=== PATIENT | female | born 1965 | race Caucasian/White ===

== ENCOUNTER 2019-09-19 16:25 | Emergency (ER) | payer SELFPAY ==
[~2019-09-19] VITALS: Ht 154 cm; Wt 100.0 kg
[2019-09-19 16:40] VITALS: BP 165/93
[2019-09-19 16:45] LABS: BACTERIA,URINE FEW /HPF; BILIRUBIN,URINE NEGATIVE (NEGATIVE); CLARITY,URINE CLEAR; COLOR,URINE YELLOW; GLUCOSE, URINE (UA) 3+ (NEGATIVE); KETONES,URINE 1+ (NEGATIVE); LEUKOCYTE ESTERASE ,URINE NEGATIVE (NEGATIVE); NITRITE,URINE NEGATIVE (NEGATIVE); PROTEIN,URINE NEGATIVE (NEGATIVE); RBC,URINE TNTC /HPF
[2019-09-19] MEDS ORDERED: ONDANSETRON 4 MG (ZOFRAN) ORAL DISSOLVE TAB PO STA (16:52)
[2019-09-19] MEDS ORDERED: morphine INJ 10 MG/ML 1ML (SYR OR VIAL) IM STA (16:52)
[2019-09-19] MEDS ORDERED: HYDR-83 PO (16:57)
[2019-09-19] MEDS ORDERED: TMSL.4C PO (16:57)
--- NOTE | 2019-09-19 16:59 | ED GU-Female ---
General Chief Complaint: - Urinary Stated Complaint: LOWER RIGHT GROIN/ABD/BACK PAIN Nursing Triage Note: RIGHT SIDE FLANK PAIN SINCE THIS AM. STARTED OUT CRAMPS. REPORTS A HX OF KIDNEY STONES. Nursing Sepsis Screen: No Definite Risk Source: patient Exam Limitations: no limitations History of Present Illness Date Seen by Provider: Sep 19, 2019 Time Seen by Provider: 16:45 Initial Comments Patient presents with complaint of 3 days of right flank pain and history of frequent kidney stones. Patient visiting her granddaughter from out of town and currently does not have a PCP where she recently moved in [place] from [place]. Also does not have a urologist. Does admit to being seen at [facility] 3 weeks ago and had a CT scan which was negative and presumed to have stones at that time due to recurrent flank pain and hematuria. Patient states she "has the type of stones that sometimes are not seen on CT scan". Currently pain in her right lower quadrant which was radiating from her right flank. Pain began in her right flank 3 days ago. Patient states this is typical of her kidney stone pain. Denies vomiting, constipation or diarrhea. Denies fever or chills. Denies chest pain shortness of air. Denies any recent illness. Appetite is normal and without any weight loss. Allergies and Home Medications Allergies Coded Allergies: cyclobenzaprine (Verified Allergy, Mild, 09/19/19) diphenhydramine (Verified Allergy, Mild, Hives, 09/19/19) ketorolac (Verified Allergy, Mild, Hives, 09/19/19) sumatriptan (Verified Allergy, Mild, Nausea, 09/19/19) Iodinated Contrast Media (Verified Allergy, Unknown, 09/19/19) Home Medications Hydrocodone/Acetaminophen 1 Each Tablet, 1 EACH PO Q4H Prescribed by: LEEANNA DENISSTKVNG on 09/19/191656 Tamsulosin HCl 0.4 Mg Cap, 0.4 MG PO DAILY Prescribed by: LEEANNA COELHO on 09/19/191656 Patient Home Medication List Home Medication List Reviewed: Yes Review of Systems Review of Systems Constitutional: see HPI; No fever, No malaise, No weakness Cardiovascular: No edema, No palpitations Gastrointestinal: see HPI; No constipation, No diarrhea, No loss of appetite; nausea; No vomiting Genitourinary: see HPI; denies burning, denies discharge, denies dysuria, denies frequency; flank pain, hematuria; denies incontinence; pain; denies urgency Musculoskeletal: see HPI; No back pain, No joint pain, No neck pain Past Yugjoei-Ihimeo-Ixvmzq Hx Past Med/Social Hx: Reviewed Nursing Past Med/Soc Hx Patient Social History Alcohol Use: Denies Use Recreational Drug Use: No Smoking Status: Current Everyday Smoker Type Used: Cigarettes 2nd Hand Smoke Exposure: Yes Recent Foreign Travel: No Contact w/Someone Who Travel: No Recent Infectious Disease Expo: No Recent Hopitalizations: No Physical Abuse: No Sexual Abuse: No Mistreated: No Fear: No Seasonal Allergies Seasonal Allergies: No Past Medical History Surgeries: Yes (HERNIA REPAIR, CARPAL TUNNEL BILAT, KIDNEY STONE RETRIVELS X 3) Gallbladder Respiratory: No Cardiac: No Neurological: Yes Neuropathy [employer] TECHNICIAN History: Hysterectomy Genitourinary: Yes Kidney Stones Gastrointestinal: No Musculoskeletal: Yes Arthritis Endocrine: Yes Diabetes, Non-Insulin dep HEENT: No Cancer: No Psychosocial: No Integumentary: No Blood Disorders: No Physical Exam Vital Signs Vital Signs - First Documented 09/19/19 16:40 Temp 36.3 Pulse 106 Resp 24 B/P (MAP) 165/93 (117) Pulse Ox 97 O2 Delivery Room Air Capillary Refill : Less Than 3 Seconds Height, Weight, BMI Height: '" Weight: lbs. oz. kg; 42.00 BMI Method: General Appearance: WD/WN, no apparent distress Cardiovascular: regular rate, rhythm, no edema, no gallop Respiratory: chest non-tender, lungs clear, normal breath sounds, no respiratory distress, no accessory muscle use Gastrointestinal: soft; No distended, No guarding, No rebound; tenderness (generalized R flank and R abdomen. NO findings of acute abdomen); No mass, No hepatomegaly Back: normal inspection, no CVA tenderness, no vertebral tenderness Extremities: non-tender, normal inspection, no pedal edema Progress/Results/Core Measures Suspected Sepsis Recent Fever Within 48 Hours: No Infection Criteria Present: None New/Unexplained Altered Menta: No Sepsis Screen: No Definite Risk SIRS Temperature: Pulse: 106 Respiratory Rate: 24 Blood Pressure 165 /93 Mean: 117 Results/Orders Lab Results Laboratory Tests Test 09/19/19 16:31 Range/Units Urine Color YELLOW Urine Clarity CLEAR Urine pH 7.0 5-9 Urine Specific [place] 1.015 L 1.016-1.022 Urine Protein NEGATIVE NEGATIVE Urine Glucose (UA) 3+ H NEGATIVE Urine Ketones 1+ H NEGATIVE Urine Nitrite NEGATIVE NEGATIVE Urine Bilirubin NEGATIVE NEGATIVE Urine Urobilinogen 0.2 < = 1.0 MG/DL Urine Leukocyte Esterase NEGATIVE NEGATIVE Urine RBC (Auto) 3+ H NEGATIVE Urine RBC TNTC H /HPF Urine WBC NONE /HPF Urine Squamous Epithelial Cells 10-25 H /HPF Urine Crystals NONE /LPF Urine Bacteria FEW H /HPF Urine Casts NONE /LPF Urine Mucus NEGATIVE /LPF Urine Culture Indicated NO My Orders Orders - LEEANNA COELHO DO Urinalysis (09/19/19 16:36) Morphine Injection (Morphine Injection (09/19/19 16:52) Ondansetron Oral Dissolve Tab (Zofran (09/19/19 16:52) Vital Signs/I&O 09/19/19 16:40 Temp 36.3 Pulse 106 Resp 24 B/P (MAP) 165/93 (117) Pulse Ox 97 O2 Delivery Room Air Capillary Refill : Less Than 3 Seconds Blood Pressure Mean: 117 Progress Note : Progress Note History of present illness & presentation of patient highly suspicious of drug- seeking behavior. Multiple allergies and with no sign of acute distress. Story of frequent "moving" in [place] and [place] without a PCP or urologist, very reluctant to give information related to confirmation of medical records. Departure Impression Primary Impression: Hematuria Qualified Codes: R31.0 - Gross hematuria Additional Impressions: History of kidney stones Flank pain, acute Disposition: HOME, SELF-CARE Condition: Improved Departure-Patient Inst. Decision time for Depature: 16:56 Referrals: NO,LOCAL PHYSICIAN (PCP/Family) Primary Care Physician Patient Instructions: Blood in the Urine (Hematuria), Adult (DC), Flank Pain (DC), Kidney Stone Diet Add. Discharge Instructions: follow up with your PCP (or a local Urologist) when you return home on Sunday. Go to the nearest ER if your pain gets worse. All discharge instructions reviewed with patient and/or family. Voiced understanding. Scripts Hydrocodone/Acetaminophen (Hydrocodone-Acetamin 5-325 mg) 1 Each Tablet 1 EACH PO Q4H for Abdominal Pain, #10 TAB Prov: LEEANNA COELHO DO 09/19/19 Tamsulosin HCl (Flomax) 0.4 Mg Cap 0.4 MG PO DAILY, #7 CAP Prov: LEEANNA COELHO DO 09/19/19 LEEANNA COELHO DO Sep 19, 2019 16:59
--- OUTSIDE RECORDS SUMMARY | 2019-09-19 18:07 | XMS REPORT | Continuity of Care Document ---
Author Author [facility] Address [address] [place] [address] Care Team Providers Care Long Term Care Social Worker Name Role Phone DOCTOR, OUT OF TOWN Unavailable Unavailable Insurance Providers Payer Name Policy Number Subscriber Name Relationship [facility] [id number] KESHIA SANCHEZ PATIENT/SELF Advance Directives Directive Response Recorded Date/Time Advance Directive Information: AD BROCHURE GIVEN TO PT 09/28 1:12pm Chief Complaint and Reason for Visit Reason for Visit GENERAL Problems Active Medical Problems Problem Onset Date Recorded Date Status Back contusion Unknown 11/08/13 Active Renal colic on left side Unknown 01/19/14 Active Chronic pain disorder Unknown 02/18/14 Active Syncope Unknown 02/18/14 Active Diabetes type 2, uncontrolled Unknown 02/18/14 Ac tive Abdominal pain Unknown 05/10/14 Active Multiple contusions Unknown 06/23/14 Active Allergic reaction caused by a drug Unknown 06/30/14 Active Infectious gastroenteritis Unknown 11/26/14 Activ e Gastroparesis Unknown 04/06/16 Active Acute hemorrhoid Unknown 04/08/16 Active Fall Unknown 04/30/16 Active Left lower lobe pneumonia Unknown 06/27/16 Active Hypoxia Unknown 06/27/16 Active Elevated d-dimer Unknown 06/27/16 Active Chronic generalized abdominal pain Unknown 09/11/16 Active Rib fracture Unknown 09/28/16 Active Sprain of left foot Unknown 09/28/16 Active Back strain Unknown 09/28/16 Active Left rib fracture Unknown 09/28/16 Active Medications Current Home Medications Medication Dose Units Route Directions Days/Qty Instructions Star t Date Albuterol Sulfate (Proair Hfa) 8.5 GM HFA.AER.AD 2 PUFF IH FOUR TIMES DAILY Celecoxib* (Celebrex*) 200 MG UD.CAP 200 MG BY MOUTH DAILY Diclofenac Sodium 75 MG TABLET.DR 75 MG BY MOUTH TW ICE DAILY PRN MUSCLE SPASMS Gabapentin (Neurontin) 800 MG TABLET 800 MG BY MOUTH THREE TIME S DAILY Hyoscyamine Sulfate (Levsin) 0.125 MG TABLET 1-2 TAB BY MOUTH EVERY 4 HOURS NEEDED PRN ABDOMINAL PAIN 30 09/11/16 Insulin Glargine 100 Units/Ml (Lantus) 100 UNIT/1 ML INJ 70 UNITS SUBCUTANEO BEDTIME Insulin Glargine,Hum.rec.anlog (Toujeo Solostar) 300 UNIT/1 ML INSULN.PEN 70 UNITS SQ DAILY Oxycodone 5 MG W/Actm 325 MG (Percocet 5/325) 1 EA UD.TAB 1 TAB BY MOUTH EVERY 6 HOURS NEEDED PRN pain 15 09/28/16 Oxycodone CR* (Oxycontin CR*) 10 MG TAB 10 MG BY MOUTH EVERY 1 2 HOURS 10 09/28/16 Past Home Medications Medication Directions Ordered Status Amoxicillin* (Amoxil*) 500 Mg Capsule Capsule, 500 Mg Po Unknown Discontinued Cephalexin (Keflex) 500 Mg Capsule Capsule, 500 Mg Po FOUR TIMES DAILY Unknown Discontinued Ciprofloxacin* (Cipro*) 500 Mg Tablet Tablet, 500 Mg Po TWICE DA SALEEM 03/02/13 Discontinued Gabapentin (Neurontin) 300 Mg Capsule Capsule, 600 Mg Po THR EE TIMES DAILY Unknown Discontinued Gabapentin (Neurontin) 600 Mg Tablet Tablet, 600 Mg By Mouth THREE TIMES DAILY Unknown Discontinued Hydrocod 10MG/Actm 325MG (Vicodin 10-325) 1 Each Table t Tablet, 1 Tab Po EVERY 6 HOURS NEEDED Unknown Discontinued Hydrocodone 10MG/Actm 325MG (Vicodin 10/325<Generic>) 1 Ea Ud.tab Ud.tab, EVERY 4 HOURS Unknown Discontinued [Ibuprofen] , Unknown Discontinued Insuln Asp Prt/Insulin Aspart (Novolog M ix 70-30 Vial) 100 Unit/1 Ml Vial Vial, 5 Units Sq THREE TIMES DAILY Unknown Discontinued [Lunesta] , Unknown Discontinued Ondansetron Odt (Zofran Odt) 4 Mg Tab Tab, 4 Mg Sublin gual EVERY 6 HOURS NEEDED PRN NAUSEA AND VOMITING 05/10/14 Discontinued Ondansetron Odt (Zofran Odt) 4 Mg Tab Tab, 4 Mg Po Unknown Discontinued Oxycodone Cr* (Oxycontin Cr*) 10 Mg Tab.sr.12h Tab.sr. 12h, 10 Mg Po EVERY 12 HOURS Unknown Discontinued Oxycodone Hcl* (Percolone/Roxicodone*) 5 Mg Ud.tab Ud. tab, 10 Mg Po FOUR TIMES DAILY PRN PAIN Unknown Discontinued Promethazine (Phenergan) 25 Mg Tab Tab, 25 Po U nknown Discontinued Sertraline (Zoloft Tab) Tab Tab, Unknown Discontinued Sertraline (Zoloft Tab) Tab Tab, Unknown Discontinued Tramadol (Ultram) 50 Mg Tab Tab, 50 Mg Po EVERY 6 HOURS NEED ED 03/02/13 Discontinued Tramadol Hcl/Acetaminophen (Ultracet Tab let) 1 Each Tablet Tablet, 1 Tab By Mouth EVERY 6 HOURS NEEDED PRN pain 09/12/14 Discont inued Social History Problem Response Recorded Date Drug Use none 11/08/13 Alcohol Use sober 11/08/13 Hospital Discharge Instructions No hospital discharge instructions. Plan of Care Discharge Date 09/28/16 Disposition HOME/SELF CARE Condition at Discharge Stable Instructions/Education Provided How to Stop Smoking (E D) Rib Fracture (ED) Prescriptions See Medications Section Referrals OUT OF TOWN DOCTOR - Additional Instructions/Education Follow up with a [facility] doctor for further medication changes. Return to the ED as needed. Care Plan and Goals Problem: Fall Goal: Prevention of further falls. Plan: Refer to patient instructions provided. Functional Status No functional status results. Allergies, Adverse Reactions, Alerts Allergen Type Severity Reaction Status Last Updated IODINE Allergy Severe ANAPHYLAXIS Active 09/28/16 ACETAMINOPHEN AdvReac Unknown TOLD NOT TO TAKE DUE TO LIVER FUN CTION Active 09/28/16 BENZONATATE Allergy Severe ANAPHYLAXIS Active 09/28/16 CARISOPRODOL Allergy Unknown Active 09/28/16 IBUPROFEN AdvReac Unknown TOLD NOT TO TAKE DUE TO KIDNEY FUNCT ION Active 09/28/16 SUMATRIPTAN Allergy Intermediate ELEVATED BP Active 09/28/16 CYCLOBENZAPRINE Allergy Intermediate VOMITING Active 7 DIPHENHYDRAMINE Allergy Intermediate HIVES Active 7 KETOROLAC Allergy Unknown HIVES Active 09/28/16 CONTRAST DYE Allergy Severe ANAPHYLAXIS Active 03/10/13 Immunizations Name Date Given Type *Flu Shot: Current Historical *Tetanus Shot: Up To Date Historical Vital Signs Vital Reading Collection Date/Time Result Blood Pressure 09/28/16 2:31pm 136/85 Patient Temperature 09/28/16 2:31pm 97.8 Temperature Source 09/28/16 2:31pm Temporal Respiratory Rate 09/28/16 2:31pm 18 Pulse Rate 09/28/16 2:31pm 98 Bedside Pulse Oximetry 09/28/16 2:31pm 97 Height 09/28/16 2:31pm 5 ft 1 in Weight 09/28/16 2:31pm 200 lb Body Mass Index 09/28/16 2:31pm 37.[address] [address] ED PHYSICIAN DOCUMENTATION Patient Name: KESHIA SANCHEZ : 69 Unit #: [id number] Patient's Service Date: 09/28/16 ED Physician: Gabrielle Rebolledo MD (ED) Primary Physician: OUT OF TOWN DOCTOR History of Present Illness General Chief Complaint rib pain Stated Complaint rib pain Time Seen by Provider 1325 Source patient Exam Limitations no limitations History of Present Illness Initial Comments The patient has left rib pain. She was seen in the ED yesterday and determined t o have a rib fracture. She cannot afford her medication. She states she shouldn't fatty liver. Location chest (lewft rib) Context associated with fall Quality sharp Severity severe Duration since yesterday Timing continuous Allergies Coded Allergies: BENZONATATE (From TESSALON PERLES) (Severe, ANAPHYLAXIS 09/28/16) IODINE (Severe, ANAPHYLAXIS 09/28/16) CYCLOBENZAPRINE (Intermediate, VOMITING 09/28/16) Converted from Generic Allergy: CYCLOB DIPHENHYDRAMINE (Intermediate, HIVES 09/28/16) Converted from Generic Allergy: DIPHEN SUMATRIPTAN (From IMITREX) (Intermediate, ELEVATED BP 09/28/16) CARISOPRODOL (09/28/16) Converted from Generic Allergy: CARISO2 KETOROLAC (HIVES 09/28/16) ACETAMINOPHEN (From TYLENOL) (TOLD NOT TO TAKE DUE TO LIVER FUNCTION 09/28/16) IBUPROFEN (TOLD NOT TO TAKE DUE TO KIDNEY FUNCTION 09/28/16) Uncoded Allergies: CONTRAST DYE (Severe, ANAPHYLAXIS 03/10/13) Home Medications Active Scripts Oxycodone CR* (Oxycontin CR*) 10 MG BY MOUTH Q12H #10 TAB Prov: 09/28/16 Hyoscyamine Sulfate (Levsin) 1-2 TAB BY MOUTH Q4H PRN PRN ABDOMINAL PAIN #30 TAB Ref 1 Prov: 09/11/16 Reported Medications Insulin Glargine 100 Units/Ml (Lantus) 70 UNITS SUBCUTANEO BEDTIME Insulin Glargine,Hum.rec.anlog (Toujeo Solostar) 70 UNITS SQ DAILY Celecoxib* (Celebrex*) 200 MG BY MOUTH DAILY Albuterol Sulfate (Proair Hfa) 2 PUFF IH QID Gabapentin (Neurontin) 800 MG BY MOUTH TID Diclofenac Sodium 75 MG BY MOUTH BID PRN MUSCLE SPASMS Discontinued Reported Medications Gabapentin (Neurontin) 600 MG BY MOUTH TID Review of Systems Review of Systems Was ROS Completed? Yes Constitutional Denies fever, Denies chills Respiratory Denies cough, Denies short of breath Cardiovascular Reports chest pain (left chest wall) Gastrointestinal Denies abdominal pain Past Medical History Past Medical History Medical History diabetes, bowel obstruction Surgical History cholecystectomy, hysterectomy, hernia repair, bowel resection Social History Smoker Current every day smoker Physical Exam Physical Exam Nursing Assessment Reviewed Yes Constitutional well developed, well nourished, no apparent distress Ear, Nose, Throat hearing grossly normal Neck normal inspection, non-tender, supple, full range of motion Respiratory no respiratory distress, normal breath sounds, no accessory muscle u se, chest wall tenderness (left ribs) Cardiovascular regular rate/rhythm, no murmur Gastrointestinal soft, non tender, normal bowel sounds Musculoskeletal normal strength Skin normal color, warm/dry Neurological no motor deficit Psychiatric alert, oriented, normal mood/affect Progress Note Progress Note Progress Note Time 1330 Progress Note The patient returned her prescription for Oxycontin CR given by Dr. Gian white [facility]. We discussed the risks and benefits of taking a less expensive medication with tyle nol. The patient agreed. Departure Departure Clinical Impression Primary Impression: Left rib fracture Qualifiers: Encounter type: subsequent encounter Rib fracture type: single rib Fracture type: closed Fracture healing: with routine healing Qualified Code: S22.32XD - F racture of one rib, left side, subsequent encounter for fracture with routine healing Time of Disposition 1332 Disposition HOME/SELF CARE Condition Stable Tobacco Education Education Handout Given Patient Instructions How to Stop Smoking (ED), Rib Fracture (ED) Referrals OUT OF TOWN DOCTOR (PCP) Additional Instructions Follow up with a primary care doctor for further medication changes. Return to [facility] ED as needed. Prescriptions Current Visit Scripts Oxycodone 5 MG W/Actm 325 MG (Percocet 5/325) 1 TAB BY MOUTH Q6H PRN PRN pain #15 TAB Gabrielle Rebolledo MD Electronically Signed 09/28/16 1339 Procedures No Known History of Procedures. Encounters Encounter Location Arrival/Admit Date Discharge/Depart Date Attending Provider Departed Emergency [facility] 09/28/16 1:12pm 09/28/16 1:42pm Ama[place] (ED) Gabrielle Saldivar MD Departed Emergency [facility] 09/27/16 10:01pm 09/28/16 0:42am Octavia Springer MD Departed Emergency [facility] 09/10/16 9:56pm 09/11/16 1:15am Jasbir Butler MD Encounter Diagnosis Fracture of rib of left side
--- OUTSIDE RECORDS SUMMARY | 2019-09-19 18:07 | XMS REPORT | Continuity of Care Document ---
Author Author [facility] Address [address] [facility] [place] [address] Care Team Providers Care Supervisor Inspection Name Role Phone DOCTOR, OUT OF TOWN Unavailable Unavailable Insurance Providers Payer Name Policy Number Subscriber Name Relationship [facility] [id number] KESHIA SANCHEZ PATIENT/SELF Advance Directives Directive Response Recorded Date/Time Advance Directive Information: AD BROCHURE GIVEN TO PT 09/27 10:02pm Chief Complaint and Reason for Visit Reason for Visit FALL Problems Active Medical Problems Problem Onset Date [...] 09/28/16 Active Back strain Unknown 09/28/16 Active Medications Current Home Medications Medication Dose Units Route Directions Days/Qty Instructions Star t Date MEDICATION RECONCILIATION (Medication Reconciliation) 1 EACH EA 1 EACH BY MOUTH ONE TIME ONLY Albuterol Sulfate (Proair Hfa) 8.5 GM HFA.AER.AD 2 PUFF I H FOUR TIMES DAILY GIVE BRAND PAID FOR BY INSURANCE Celecoxib* (Celebrex*) 200 MG UD.CAP 200 MG BY MOUTH DAILY Diclofenac Sodium 75 MG TABLET.DR 75 MG BY MOUTH TW ICE DAILY PRN MUSCLE SPASMS Gabapentin (Neurontin) 600 MG TABLET 600 MG BY MOUTH THR EE TIMES DAILY LAST FILLED 03/23/16 (90 DAY SUPPLY) Hyoscyamine Sulfate (Levsin) 0.125 MG TABLET 1-2 TAB BY MOUTH EVERY 4 HOURS NEEDED PRN ABDOMINAL PAIN 30 09/11/16 Insulin Glargine 100 Units/Ml (Lantus) 100 UNIT/1 ML INJ 70 UNITS SUBCUTANEO BEDTIME LAST FILLED 11-22-15 (3 WK SUPPLY) Insulin Glargine,Hum.rec.anlog (Toujevenus Solostar) 300 UNIT/1 ML INSULN.PEN 70 UNITS DAILY Oxycodone CR* (Oxycontin CR*) 10 MG TAB [...] Po THR EE TIMES DAILY Unknown Discontinued Hydrocod 10MG/Actm 325MG [...] 09/28/16 Disposition HOME/SELF CARE Condition at Discharge Satisfactory Instructions/Education Provided How to Stop Smoking (E D) Prescriptions See Medications Section Referrals OUT OF [facility] DOCTOR - [facility] - Additional Instructions/Education PAIN PILL DIRECTE D FILL RX IN THE MORNING TAKE PRESCRIBED. TAKE DEEP BREATHS AND COUGH WITH A PILLOW AGAINS YOUR CHEST TO KEEP FROM GETTING PNEUMONIA Care Plan and Goals Problem: Fall Goal: [...] Immunizations Name Date Given Type *Flu Shot: Unknown Historical *Tetanus Shot: Unknown Historical Vital Signs Vital Reading Collection Date/Time Result Blood Pressure 09/28/16 1:07am 132/81 Patient Temperature 09/27/16 10:01pm 96.8 Temperature Source 09/27/16 10:01pm Temporal Respiratory Rate 09/28/16 1:07am 18 Pulse Rate 09/28/16 1:07am 86 Bedside Pulse Oximetry 09/28/16 1:07am 95 Height 09/27/16 10:01pm 5 ft 7 in Weight 09/27/16 10:01pm 300 lb Body Mass Index 09/27/16 10:01pm 47.0 Results [place] [address] ED PHYSICIAN DOCUMENTATION Patient Name: KESHIA SANCHEZ : 69 Unit #: [id number] Patient's Service Date: 09/27/16 ED Physician: Octavia Springer MD Primary Physician: OUT OF TOWN DOCTOR History of Present Illness General Chief Complaint Fall Stated Complaint FALL Time Seen by Provider 2215 Source patient Exam Limitations no limitations History of Present Illness Initial Comments SHE FELL AT HOME AGAINST A METAL STAIR LANDED ON THE LEFT SIDE THIS HAPPENED H OURS AGO SHE IS HAVING PAIN ALONG THE ENTIRE LEFT SIDE INCLUDING RIBS LUMBAR AREA HIP AND LEFT FOOT. Location back, left lower extremity Context associated with fall Quality sharp, stabbing, shooting, burning Severity severe Duration hours Timing one episode, continuous, worsening Modifying Factors nothing improves, worse with movement Allergies Coded Allergies: BENZONATATE (From TESSALON PERLES) (Severe, ANAPHYLAXIS 09/10/16) IODINE (Severe, ANAPHYLAXIS 09/10/16) CYCLOBENZAPRINE (Intermediate, VOMITING 09/10/16) Converted from Generic Allergy: CYCLOB DIPHENHYDRAMINE (Intermediate, HIVES 09/10/16) Converted from Generic Allergy: DIPHEN SUMATRIPTAN (From IMITREX) (Intermediate, ELEVATED BP 09/10/16) CARISOPRODOL (09/10/16) Converted from Generic Allergy: CARISO2 KETOROLAC (HIVES 09/10/16) ACETAMINOPHEN (From TYLENOL) (TOLD NOT TO TAKE DUE TO LIVER FUNCTION 09/10/16) IBUPROFEN (TOLD NOT TO TAKE DUE TO KIDNEY FUNCTION 09/10/16) Uncoded Allergies: CONTRAST DYE (Severe, ANAPHYLAXIS 03/10/13) Home Medications Active Scripts Hyoscyamine Sulfate (Levsin) 1-2 TAB BY MOUTH Q4H PRN PRN ABDOMINAL PAIN #30 TAB Ref 1 Prov: 09/11/16 Reported Medications Insulin Glargine 100 Units/Ml (Lantus) 70 UNITS SUBCUTANEO BEDTIME Insulin Glargine,Hum.rec.anlog (Toujeo Solostar) 70 UNITS DAILY Celecoxib* (Celebrex*) 200 MG BY MOUTH DAILY Albuterol Sulfate (Proair Hfa) 2 PUFF IH QID Gabapentin (Neurontin) 600 MG BY MOUTH TID Diclofenac Sodium 75 MG BY MOUTH BID PRN MUSCLE SPASMS MEDICATION RECONCILIATION (Medication Reconciliation) 1 EACH BY MOUTH ONE Review of Systems Review of Systems Was ROS Completed? Yes Constitutional Denies fever, Denies chills, Denies diaphoresis Respiratory Reports hurts to breathe, Denies short of breath, Denies wheezing, Denies strido r Cardiovascular Denies chest pain, Denies palpitations Gastrointestinal Reports nausea, Denies abdominal pain, Denies constipation, Denies diarrhea Genitourinary Denies dysuria, Denies frequency Musculoskeletal Reports back pain Skin Denies generalized rash, Denies laceration, Denies abrasion Neurological Denies numbness, Denies paresthesia Past Medical History Past Medical History Medical History diabetes, bowel obstruction Surgical History cholecystectomy, hysterectomy, hernia repair, bowel resection Psychosocial History denies psych problems Social History Smoker Current every day smoker Physical Exam Physical Exam Exam Limitations no limitations Nursing Assessment Reviewed Yes Constitutional well developed, severe distress, obese Neck normal inspection, non-tender, supple Respiratory no respiratory distress, normal breath sounds, no accessory muscle u se Cardiovascular regular rate/rhythm Gastrointestinal soft, non tender, normal bowel sounds, tenderness Musculoskeletal abnormal gait, PAIN WITH LUE MIVEMENT ANY MOVEMENT OF TORSO Results Results Radiology AL LEAST ONE LEFT RIB FRACTURE # 6 Progress Note Medications Medications Medications Given in the ED Sig/Chari Start time Last Medication Dose Route Stop Time Status Admin Fentanyl Citrate 50 MCG NOW ONE 09/27 2304 DC 09/27 (FENTANYL) IM 09/27 2305 2312 Ondansetron HCl 4 MG ONE ONE 09/28 2231 DC 09/27 (Zofran ODT) SUBLINGUAL 09/27 Oxycodone/ 1 EA NOW ONE 09/287 DC Acetaminophen BY MOUTH 09/288 (Percocet 5/325 ED HOME RX) Promethazine HCl 25 MG ONE ONE 09/27 2256 DC 09/27 (Phenergan*) IM 09/27 Tramadol HCl 100 MG ONE ONE 09/27 2233 DC 09/27 (Ultram 50MG TAB) BY MOUTH 09/27 Departure Departure Clinical Impression Primary Impression: Rib fracture Qualifiers: Encounter type: initial encounter Rib fracture type: single rib Fra cture type: closed Laterality: left Qualified Code: S22.32XA - racture of one rib, left side , initial encounter for closed fracture Secondary Impressions: Back strain Qualifiers: Encounter type: initial encounter Qualified Code: S39.012A - train of muscle, fascia and tendon of lower back, initial encounter Sprain of left foot Qualifiers: Encounter type: initial encounter Qualified Code: S93.602A - nspeci fied sprain of left foot, initial encounter Time of Disposition 003 Disposition HOME/SELF CARE Condition Satisfactory Tobacco Education Education Handout Given Patient Instructions How to Stop Smoking (ED) Referrals [facility] OUT [facility] DOCTOR (PCP) Additional Instructions PAIN PILL DIRECTED FILL RX IN THE MORNING TAKE PRESCRIBED. TAKE DEEP BR EATHS AND COUGH WITH A PILLOW AGAINS YOUR CHEST TO KEEP FROM GETTING PNEUMONIA Prescriptions Current Visit Scripts Oxycodone CR* (Oxycontin CR*) 10 MG BY MOUTH Q12H #10 TAB Octavia Springer MD Electronically Signed 09/28/16 0033 Procedures No Known History of Procedures. Encounters Encounter Location Arrival/Admit Date Discharge/Depart Date Attending Provider Departed Emergency [facility] 09/27/16 10:01pm 09/28/16 0:42am Octavia Springer MD Departed Emergency [facility] 09/10/16 9:56pm 09/11/16 1:15am Jasbir Butler MD Encounter Diagnosis Fracture of rib Back strain Sprain of left foot
--- OUTSIDE RECORDS SUMMARY | 2019-09-19 18:08 | XMS REPORT | Continuity of Care Document ---
Author Author [facility] Address [address] [place] [address] Care Team Providers Care Cat Driver Name Role Phone DOCTOR, OUT OF TOWN Unavailable Unavailable Insurance Providers Payer Name Policy Number Subscriber Name Relationship [facility] [id number] KESHIA SANCHEZ PATIENT/SELF Advance Directives Directive Response Recorded Date/Time Advance Directive Information: AD BROCHURE GIVEN TO PT 09/10 9:58pm Chief Complaint and Reason for Visit Reason for Visit ABDOMINAL PAIN Problems Active Medical Problems Problem Onset Date [...] Chronic generalized abdominal pain Unknown 09/11/16 Active Medications Current Home Medications Medication Dose [...] FILLED 11-22-15 (3 WK SUPPLY) Insulin Glargine,Hum.rec.anlog (Toujeo Solostar) 300 UNIT/1 ML INSULN.PEN 70 UNITS DAILY Past Home Medications Medication Directions Ordered Status [...] discharge instructions. Plan of Care Discharge Date 09/11/16 Disposition HOME/SELF CARE Condition at Discharge Stable Instructions/Education Provided Abdominal Pain (ED) Prescriptions See Medications Section Referrals OUT OF TOWN DOCTOR - Additional Instructions/Education take meds as directe d Care Plan and Goals Problem: Abdominal Pain Goal: Relief of abdominal pain. Plan: Refer to patient instructions provided. Functional Status No functional status results. Allergies, Adverse Reactions, Alerts Allergen Type Severity Reaction Status Last Updated IODINE Allergy Severe ANAPHYLAXIS Active 09/10/16 ACETAMINOPHEN AdvReac Unknown TOLD NOT TO TAKE DUE TO LIVER FUN CTION Active 09/10/16 BENZONATATE Allergy Severe ANAPHYLAXIS Active 09/10/16 CARISOPRODOL Allergy Unknown Active 09/10/16 IBUPROFEN AdvReac Unknown TOLD NOT TO TAKE DUE TO KIDNEY FUNCT ION Active 09/10/16 SUMATRIPTAN Allergy Intermediate ELEVATED BP Active 09/10/16 CYCLOBENZAPRINE Allergy Intermediate VOMITING Active 7 DIPHENHYDRAMINE Allergy Intermediate HIVES Active 7 KETOROLAC Allergy Unknown HIVES Active 09/10/16 CONTRAST DYE Allergy Severe ANAPHYLAXIS Active 03/10/13 Immunizations Name Date Given Type *Flu Shot: Historical *Tetanus Shot: Unknown Historical Vital Signs Vital Reading Collection Date/Time Result Blood Pressure 09/11/16 1:45am 160/96 Patient Temperature 09/11/16 1:45am 97.5 Temperature Source 09/10/16 10:35pm Oral Respiratory Rate 09/11/16 1:45am 18 Pulse Rate 09/11/16 1:45am 88 Bedside Pulse Oximetry 09/11/16 1:45am 93 Height 09/10/16 10:35pm 5 ft 6 in Weight 09/10/16 10:35pm 230 lb Body Mass Index 09/10/16 10:35pm 37.1 Blood Pressure Source 06/29/16 7:12pm Brachial Pulse Location 06/29/16 7:12pm Monitor Height 06/28/16 4:06pm 154.94 cm Weight 06/29/16 4:32am 103.532 kg Results [address] [address] ED PHYSICIAN DOCUMENTATION Patient Name: KESHIA SANCHEZ : 69 Unit #: [id number] Patient's Service Date: 09/10/16 ED Physician: Jasbir Butler MD Primary Physician: OUT OF TOWN DOCTOR History of Present Illness General Chief Complaint Abdominal Pain Stated Complaint ABDOMINAL PAIN Time Seen by Provider 2230 Source patient, parent History of Present Illness Initial Comments Pt CO flank pain and nausea with vomiting and feels like she has a kidney stone Location generalized, abdomen, back Context present at rest Quality burning Severity moderate Duration just prior to arrival Allergies Coded Allergies: BENZONATATE (From TESSALON PERLES) [...] CONTRAST DYE (Severe, ANAPHYLAXIS 03/10/13) Home Medications Reported Medications Insulin Glargine 100 Units/Ml (Lantus) [...] Review of Systems Was ROS Completed? Yes Limited By clinical condition, dementia Constitutional Denies fever, Denies chills, Denies diaphoresis Eyes Denies eye pain, Denies blurred vision, Denies double vision Respiratory Denies cough, Denies short of breath, Denies wheezing Cardiovascular Denies chest pain, Denies palpitations, Denies syncope Gastrointestinal Reports abdominal pain, Reports constipation, Reports nausea, Reports vomiting, Denies diarrhea, Denies bloody stools Genitourinary Reports dysuria, Reports frequency, Reports hematuria, Reports decreased urinati on, Denies urinary retention, Denies painful genitals Musculoskeletal Denies neck pain, Denies back pain, Denies joint pain Neurological Denies headache, Denies numbness Psychiatric Denies anxiety, Denies depression, Denies flight of ideas All Other Systems Reviewed and Negative Past Medical History Past Medical History Medical History diabetes, bowel obstruction Surgical History cholecystectomy, hysterectomy, hernia repair, bowel resection Psychosocial History denies psych problems Social History Smoker Current every day smoker Physical Exam Physical Exam Nursing Assessment Reviewed Yes Initial Vital Signs Vital Signs Result Date Time Pulse Ox 95 09/10 2234 B/P 161/104 09/10 2234 Temp 98.4 09/10 2234 Pulse 101 09/10 2234 Resp 22 09/10 2234 Constitutional well developed, well nourished, mild distress Eyes bilateral eyes PERRL, bilateral eyes EOMI, bilateral eyes pupils equal Ear, Nose, Throat hearing grossly normal, normal TM (R), normal TM (L) Respiratory no respiratory distress, normal breath sounds, no accessory muscle u se Cardiovascular regular rate/rhythm, no murmur, no edema Gastrointestinal soft, non tender, normal bowel sounds Musculoskeletal gait WNL, normal strength, no vertebral tenderness Neurological sports commentator II-XII normal, no motor deficit Results Results Labs Laboratory Tests 09/10 09/10 08/15 8 2219 2220 225 2 Chemistry Sodium (135 - 150 mmol/L) 140 Potassium (3.4 - 5.2 mmol/L) 3.9 Chloride (100 - 112 mmol/L) 107 Carbon Dioxide (18 - 30 mg/dL) 22 Anion Gap (8 - 16 mmol/L) 11 BUN (5 - 21 mg/dL) 9 Creatinine (0.60 - 1.30 mg/dL) 0.74 GFR Calculation (> 60 mL/Min) > 60 Glucose (70 - 99 mg/dL) 249 H Calcium (8.6 - 10.5 mg/dL) 9.0 Total Bilirubin (0.0 - 1.2 mg/dL) 0.2 AST (6 - 37 U/L) 14 ALT (12 - 78 U/L) 13 Alkaline Phosphatase (50 - 136 U/L) 77 Total Protein (6.4 - 8.2 g/dL) 7.5 Albumin (3.3 - 4.5 g/dL) 3.6 Albumin/Globulin Ratio (0.7 - 2.0) 0.9 Hematology WBC (4.5 - 11.0 10^3/uL) 8.7 Cancelle d RBC (3.50 - 5.40 10^6/uL) 4.85 Cancelle d Hgb (12.0 - 16.0 g/dl) 15.0 Cancelle d Hct (36 - 48 %) 43.7 Cancelle d MCV (79 - 99 fL) 90.0 MCH (25.0 - 34.0 pg) 30.9 MCHC (31.0 - 36.0 g/dL) 34.3 RDW (11.0 - 15.0 %) 13.2 Plt Count (130 - 400 10^3/uL) 177 Cancelle d MPV (7.0 - 11.0 fL) 8.8 Neutrophils % (43.0 - 72.0 %) 43.9 Cancelle d Lymphocytes % (15.0 - 45.0 %) 46.2 H Monocytes % (1.0 - 12.0 %) 4.4 Eosinophils % (0.0 - 6.0 %) 4.3 Basophils % (0.0 - 2.0 %) 1.2 Neutrophils # (1.0 - 8.0 10^3/uL) 3.8 Lymphocytes # (1.0 - 3.0 10^3/uL) 4.0 H Monocytes # (0.0 - 1.0 10^3/uL) 0.4 Eosinophils # (0.0 - 0.4 10^3/uL) 0.4 Basophils # (0.0 - 0.2 10^3/uL) 0.1 Urines Urine Color (Yellow) Yellow Urine Appearance (Clear) Sl Cloudy H Urine pH (4.5 - 7.5) 6.0 Ur Specific [place] (1.010 - .025) 1.015 Urine Protein (Negative) Negative Urine Ketones (Negative) Trace H Urine Blood (Negative) 3+ H Urine Nitrate (Negative) Negative Urine Bilirubin (Negative) Negative Urine Urobilinogen (<=1.0) 0.2 Ur Leukocyte Esterase (Negative) Negative Urine RBC (0 - 5) 50 - 100 H Urine WBC (0 - 5) O - 2 Ur Epithelial Cells (5 - 10) 10 - 25 H Urine Bacteria (Trace) Trace Urine Glucose (Negative) 3+ H Radiology negative for kidney stone Progress Note Medications Medications Medications Given in the ED Sig/Chari Start time Last Medication Dose Route Stop Time Status Admin Fentanyl Citrate 50 MCG X1ED STA 09/10 2213 DC (FENTANYL) IV 09/10 2214 2226 Hydromorphone HCl 1 MG ONE ONE 09/10 2243 DC (Dilaudid) IV 09/10 2244 2256 Hyoscyamine Sulfate 0.25 MG ONE ONE 09/10 2336 DC (Levsin/Sl*) SUBLINGUAL 09/10 2337 2344 Ondansetron HCl 4 MG X1ED STA 09/10 2213 DC (ZOFRAN) IV 09/10 2214 2226 Sodium Chloride 1,000 ML .Q1H 09/10 2213 DC (0.9% Sodium IV 09/10 2312 2225 Chloride) Departure Departure Clinical Impression Primary Impression: Chronic generalized abdominal pain Time of Disposition 0051 Disposition HOME/SELF CARE Condition Stable Tobacco Education Education Handout Given Patient Instructions Abdominal Pain (ED) Referrals OUT OF TOWN DOCTOR (PCP) Additional Instructions take meds as directed Prescriptions Current Visit Scripts Hyoscyamine Sulfate (Levsin) 1-2 TAB BY MOUTH Q4H PRN PRN ABDOMINAL PAIN #30 TAB Ref 1 Jasbir Butler MD Electronically Signed 09/11/16 0053 Procedures No Known History of Procedures. Encounters Encounter Location Arrival/Admit Date Discharge/Depart Date Attending Provider Departed Emergency [facility] 09/10/16 9:56pm 09/11/16 1:15am Jasbir Butler MD Discharged Inpatient [facility] 06/27/16 12:06pm 03/16/ 17 7:25pm Yeyo Gandhi MD Encounter Diagnosis Chronic generalized abdominal pain
--- OUTSIDE RECORDS SUMMARY | 2019-09-19 18:08 | XMS REPORT | Continuity of Care Document ---
Author Author [facility] Address [address] [place] [address] Care Team Providers Care Pipe [employer]itter Wel[employer] Name Role Phone DOCTOR, OUT OF TOWN Unavailable Unavailable Insurance Providers Payer Name Policy Number Subscriber Name Relationship [facility] [id number] KESHIA SANCHEZ PATIENT/SELF Advance Directives Directive Response Recorded Date/Time Advance Directive Information: AD BROCHURE GIVEN TO PT 04/30 5:02pm Chief Complaint and Reason for Visit Reason [...] Unknown 04/08/16 Active Fall Unknown 04/30/16 Active Medications Current Home Medications Medication Dose Units Route Directions Days/Qty Instructions Star t Date Gabapentin (Neurontin) 600 MG TABLET 600 MG BY MOUTH THR EE TIMES DAILY LAST FILLED 03/23/16 (90 DAY SUPPLY) Hydrocortisone Acetate (Anusol-Hc) 25 MG SUPP.RECT 1 SUPP RECTALLY TWICE DAILY 04/08/16 INSULIN ASPART 100 Units/ML (Novolog=Humalog) 100 UNITS/ML INJ 15 UNITS SQ THREE TIMES DAILY BEFORE MEALS LAST FILLED 09-02-15 (ONE MONTH SUPP LY) Insulin Glargine 100 Units/Ml (Lantus) 100 UNIT/1 ML INJ 70 UNITS SUBCUTANEO BEDTIME LAST FILLED 11-22-15 (3 WK SUPPLY) Metoclopramide (Reglan) 10 MG TAB 1 TAB BY AKIN TH EVERY 6 HOURS NEEDED PRN NAUSEA AND VOMITING 04/06/16 Past Home Medications Medication Directions Ordered Status [...] discharge instructions. Plan of Care Discharge Date 04/30/16 Disposition HOME/SELF CARE Condition at Discharge Satisfactory Instructions/Education Provided Contusion Prescriptions See Medications Section Referrals OUT OF TOWN DOCTOR - Additional Instructions/Education see pcp if not impro gregg Care Plan and Goals Problem: Fall Goal: Prevention of further falls. Plan: Refer to patient instructions provided. Functional Status No functional status results. Allergies, Adverse Reactions, Alerts Allergen Type Severity Reaction Status Last Updated IODINE Allergy Severe ANAPHYLAXIS Active 04/06/16 ACETAMINOPHEN AdvReac Unknown TOLD NOT TO TAKE DUE TO LIVER FUN CTION Active 04/06/16 BENZONATATE Allergy Severe ANAPHYLAXIS Active 04/06/16 CARISOPRODOL Allergy Unknown Active 04/06/16 IBUPROFEN AdvReac Unknown TOLD NOT TO TAKE DUE TO KIDNEY FUNCT ION Active 09/12/14 SUMATRIPTAN Allergy Intermediate ELEVATED BP Active 04/06/16 CYCLOBENZAPRINE Allergy Intermediate VOMITING Active 6 DIPHENHYDRAMINE Allergy Intermediate HIVES Active 6 KETOROLAC Allergy Unknown HIVES Active 04/06/16 CONTRAST DYE Allergy Severe ANAPHYLAXIS Active 03/10/13 Immunizations Name Date Given Type *Flu Shot: Historical *Tetanus Shot: Up To Date Historical Vital Signs Vital Reading Collection Date/Time Result Blood Pressure 04/30/16 5:08pm 144/85 Patient Temperature 04/30/16 7:46pm 98.4 Temperature Source 04/30/16 5:08pm Oral Respiratory Rate 04/30/16 5:08pm 20 Pulse Rate 04/30/16 5:08pm 91 Bedside Pulse Oximetry 04/30/16 5:08pm 97 Height 04/30/16 5:08pm 5 ft 1 in Weight 04/30/16 5:08pm 200 lb Body Mass Index 04/30/16 5:08pm 37.[address] [address] ED PHYSICIAN DOCUMENTATION Patient Name: KESHIA SANCHEZ : 69 Unit #: [id number] Patient's Service Date: 04/30/16 ED Physician: Mike Hodgson Jr, MD Primary Physician: OUT OF TOWN DOCTOR History of Present Illness General Chief Complaint Fall Stated Complaint FALL Time Seen by Provider [id number] Source patient Exam Limitations no limitations History of Present Illness Initial Comments The patient fell earlier this afternoon and landed on her buttocks on concrete. She complains of left hip pain, low back pain, and tailbone pain. She stated that s he does have some chronic tailbone pain but it is worse than usual. Location back, left lower extremity (hip) Context associated with fall Severity moderate Duration hours (three) Timing continuous Modifying Factors better with rest, worse with movement Allergies Coded Allergies: BENZONATATE (From TESSALON PERLES) (Severe, ANAPHYLAXIS 04/06/16) IODINE (Severe, ANAPHYLAXIS 04/06/16) CYCLOBENZAPRINE (Intermediate, VOMITING 04/06/16) Converted from Generic Allergy: CYCLOB DIPHENHYDRAMINE (Intermediate, HIVES 04/06/16) Converted from Generic Allergy: DIPHEN SUMATRIPTAN (From IMITREX) (Intermediate, ELEVATED BP 04/06/16) CARISOPRODOL (04/06/16) Converted from Generic Allergy: CARISO2 KETOROLAC (HIVES 04/06/16) ACETAMINOPHEN (From TYLENOL) (TOLD NOT TO TAKE DUE TO LIVER FUNCTION 04/06/16) IBUPROFEN (TOLD NOT TO TAKE DUE TO KIDNEY FUNCTION 09/12/14) Uncoded Allergies: CONTRAST DYE (Severe, ANAPHYLAXIS 03/10/13) Home Medications Active Scripts Metoclopramide (Reglan) 1 TAB BY MOUTH Q6H PRN PRN NAUSEA AND VOMITING #20 TAB Ref 1 Prov: 04/06/16 Hydrocortisone Acetate (Anusol-Hc) 1 SUPP RECTALLY BID #14 SUPP.RECT Prov: 04/08/16 Reported Medications Insulin Glargine 100 Units/Ml (Lantus) 70 UNITS SUBCUTANEO BEDTIME INSULIN ASPART 100 Units/ML (Novolog=Humalog) 15 UNITS SQ TID AC Gabapentin (Neurontin) 600 MG BY MOUTH TID (Gabrielle Rebolledo MD (ED)) Review of Systems Review of Systems Was ROS Completed? Yes Constitutional Denies fever, Denies chills ENT Reports nose congestion Respiratory Reports cough, Denies short of breath Cardiovascular Denies chest pain, Denies syncope Gastrointestinal Reports nausea, Denies abdominal pain, Denies constipation, Denies diarrhea, Den ies vomiting Musculoskeletal Reports neck pain, Reports back pain, Reports joint pain (left hip) Skin Denies ecchymosis Neurological Reports headache, Denies numbness, Denies tingling, Denies weakness (focal) (Gabrielle Rebolledo MD (ED)) Past Medical History Past Medical History Medical History diabetes, bowel obstruction Surgical History cholecystectomy, hysterectomy, hernia repair, bowel resection Psychosocial History denies psych problems Social History Smoker Current every day smoker (Gabrielle Rebolledo MD (ED)) Physical Exam Physical Exam Nursing Assessment Reviewed Yes Initial Vital Signs Vital Signs Result Date Time Pulse Ox 97 04/30 1707 B/P 144/85 04/30 1707 Temp 99.0 04/30 1707 Pulse 91 04/30 170 Resp 20 04/30 170 Constitutional well nourished, mild distress, appears older than stated age Neck normal inspection, supple, tender midline, patient developed midline neck p ain after x- rays completed Respiratory no respiratory distress, normal breath sounds, no accessory muscle u se Cardiovascular regular rate/rhythm, no murmur Gastrointestinal soft, normal bowel sounds Musculoskeletal midline vertebral tender (low back and tailbone), joint pain (le ft hip) Skin normal color, warm/dry Neurological no motor deficit Psychiatric alert, oriented, normal mood/affect (Gabrielle Rebolledo MD (ED)) Results XRAY Read by radiologist Yes Reviewed by ED provider Yes Xray Comments left hip, pelvis, lumbar, coccyx and sacrum CT Reviewed by ED provider Yes (head and C spine) (Gabrielle Rebolledo MD (ED)) Results Labs Laboratory Tests 04/30 04/30 1811 1908 Chemistry Sodium (135 - 150 mmol/L) 141 Potassium (3.4 - 5.2 mmol/L) 3.4 Chloride (100 - 112 mmol/L) 105 Carbon Dioxide (21 - 33 meq/L) 27 Anion Gap (8 - 16 mmol/L) 9 BUN (5 - 21 mg/dl) 8 Creatinine (0.60 - 1.30 mg/dl) 0.55 L GFR Calculation (> 60 mL/Min) > 60 Glucose (70 - 99 mg/dl) 178 H Calcium (8.6 - 10.5 mg/dl) 8.4 L Total Bilirubin (0.0 - 1.2 mg/dl) 0.3 AST (6 - 37 U/L) 24 ALT (12 - 78 U/L) 27 Alkaline Phosphatase (46 - 116 U/L) 93 Total Protein (6.4 - 8.2 g/dl) 6.8 Albumin (3.3 - 4.5 g/dl) 3.3 Albumin/Globulin Ratio (0.7 - 2.0) 0.9 Hematology WBC (4.5 - 11.0 10^3/uL) 7.2 RBC (3.50 - 5.40 10^6/uL) 4.81 Hgb (12.0 - 16.0 g/dl) 14.6 Hct (36 - 48 %) 42.9 MCV (79 - 99 fL) 89.2 MCH (25.0 - 34.0 pg) 30.3 MCHC (31.0 - 36.0 g/dL) 34.0 RDW (11.0 - 15.0 %) 12.9 Plt Count (130 - 400 10^3/uL) 159 MPV (7.0 - 11.0 fL) 8.3 Neutrophils % (43.0 - 72.0 %) 48.1 Lymphocytes % (15.0 - 45.0 %) 42.0 Monocytes % (1.0 - 12.0 %) 5.2 Eosinophils % (0.0 - 6.0 %) 3.2 Basophils % (0.0 - 2.0 %) 1.5 Neutrophils # (1.0 - 8.0 10^3/uL) 3.5 Lymphocytes # (1.0 - 3.0 10^3/uL) 3.0 Monocytes # (0.0 - 1.0 10^3/uL) 0.4 Eosinophils # (0.0 - 0.4 10^3/uL) 0.2 Basophils # (0.0 - 0.2 10^3/uL) 0.1 Urines Urine Color Pending Urine Appearance Pending Urine pH Pending Ur Specific [place] Pending Urine Protein Pending Urine Ketones Pending Urine Blood Pending Urine Nitrate Pending Urine Bilirubin Pending Urine Urobilinogen Pending Ur Leukocyte Esterase Pending Urine Glucose Pending Progress Note Medications Medications Medications Given in ED Sig/Chari Start time Last Medication Dose Route Stop Time Status Admin/ Admin Dose Fentanyl Citrate 50 MCG ONE ONE 04/30 1727 DC 04/30 (FENTANYL) IV 04/30 172 1817 50 MCG Ondansetron HCl 4 MG X1ED STA 04/30 1717 DC 04/30 (Zofran) IV 04/30 1718 1816 4 MG Sodium Chloride 1,000 ML .Q1H 04/30 1717 DC 04/30 (0.9% Sodium IV 04/30 1815 1817 Chloride) 1,000 MLS Departure Departure Clinical Impression Primary Impression: Fall Qualifiers: Encounter type: initial encounter Qualified Code: W19.XXXA - Unspec ified fall, initial encounter Referrals OUT OF TOWN DOCTOR (PCP/Family) Transfer of Care Care Transferred to Mike Hodgson Jr, MD Time 181 (Gabrielle Rebolledo MD (ED)) Departure Time of Disposition 1909 Disposition HOME/SELF CARE Condition Satisfactory Tobacco Education Tobacco Non-User Patient Instructions Contusion Additional Instructions see pcp if not improved (Mike Hodgson Jr, MD) Gabrielle Rebolledo MD, Jr, Richard L MD Electronically Signed 04/30/16 1910 Procedures No Known History of Procedures. Encounters Encounter Location Arrival/Admit Date Discharge/Depart Date Attending Provider Departed [facility] 04/30/16 5:02pm 04/30/16 7:22pm Mike Hodgson Jr, MD Departed [facility] 04/08/16 10:19am 04/08/16 12:00pm Jasbir Butler MD Departed [facility] 04/06/16 2:50pm 04/06/16 5:50pm Jackson Oliveira MD Encounter Diagnosis Fall
--- OUTSIDE RECORDS SUMMARY | 2019-09-19 18:08 | XMS REPORT | Continuity of Care Document ---
Demographics Preferred Language Unknown Marital Status Unknown Anglican Affiliation Unknown Race Unknown Ethnic Group Unknown Author Organization Unknown Address Unknown Phone Unavailable Allergies Active Description Code Type Severity Reaction Onset Reported/Identified Relationship to Patient Clinical Status Yes BENADRYL [id number] Drug Allergy N/A N/A Yes CONTRAST DYE Drug Allergy N/A N/A Yes FLEXERIL [id number] Drug Allergy N/A N/A Yes IMITREX [id number] Drug Allergy N/A N/A Yes IODINE 5933 Drug Allergy N/A N/A Yes TESSALON 938863 Drug Allergy N/A N/A Yes TORADOL 128116 Drug Allergy N/A hives Yes ZANAFLEX [id number] Drug Allergy N/A N/A Yes CYCLOBENZAPRINE HCL DRUG INGRE DI N/A N/A 11/05/2010 Yes DIPHENHYDRAMINE HCL 90793 DRUG N/A N/A 11/05/2010 Yes KETOROLAC TROMETHAMINE 02613 DRUG N/A N/A 11/05/2010 Yes IODINATED DIAGNOSTIC AGENTS 16 Drug Class High Anaphylaxis 10/16/2012 Yes SUMATRIPTAN SUCCINATE DRUG INGREDI N/A Other 10/16/2012 Yes TESSALON PERLES DRUG High Anaphylaxis 10/16/2012 Medications Medication Packaging Start Date St op Date Route Dosage Sig Inhalation 07/06/2015 09/02/2015 Inhalation 2 every six hours Inhalation 07/06/2015 03/27/2016 Inhalation 10.2 twice daily ORAL 07/06/2015 07/16/2015 ORAL 40 every 6 hours Subcutaneous 07/06/19 16 09/02/2015 Subcutaneous 10 15 u nits w/meals ORAL 07/06/2015 09/02/2015 ORAL 90 3 times a day ORAL 07/06/2015 09/02/2015 ORAL 60 twice da ian N/A 09/02/2015 09/04/2016 N/A 100 as direc tavon Subcutaneous 09/02/19 16 03/27/2016 Subcutaneous 10 15 u nits w/meals ORAL 09/02/2015 ORAL 90 3 times a day ORAL 09/02/2015 03/27/2016 ORAL 60 twice da ian In vitro 09/14/2015 In vitro 100 four marcelo es daily Oral 10/25/2015 03/20/2016 Oral 90 Oral 03/20/2016 03/21/2016 Oral 90 Oral 03/21/2016 03/23/2016 Oral 90 Oral 03/23/2016 06/12/2016 Oral 270 Metoclopramide TAB 04/06/2016 04/06/2017 1 Q6H PRN INSULIN ASPART 100 Units/ML UNITS 04/06/2016 04/06/2016 15 TID AC Insulin Glargine 100 Units/Ml UNITS 04/06/2016 04/06/2016 70 BEDTIME Gabapentin MG 04/0604/06/2016 600 TID Metoclopramide TAB 04/08/2016 04/06/2017 1 Q6H PRN INSULIN ASPART 100 Units/ML UNITS 04/08/2016 04/08/2016 15 TID AC Insulin Glargine 100 Units/Ml UNITS 04/08/2016 04/08/2016 70 BEDTIME Gabapentin MG 04/0804/08/2016 600 TID Hydrocortisone Acetate SUPP 04/08/2016 04/08/2017 1 BID Metoclopramide TAB 04/30/2016 04/06/2017 1 Q6H PRN INSULIN ASPART 100 Units/ML UNITS 04/30/2016 04/30/2016 15 TID AC Insulin Glargine 100 Units/Ml UNITS 04/30/2016 04/30/2016 70 BEDTIME Gabapentin MG 04/3004/30/2016 600 TID Hydrocortisone Acetate SUPP 04/30/2016 04/08/2017 1 BID Oral 06/12/2016 09/04/2016 Oral 270 ORAL 06/12/2016 ORAL 30 daily Insulin Glargine,Hum.rec.anlog UNITS 06/29/2016 06/29/2016 70 DAILY Albuterol Sulfate PUFF 06/29/2016 06/29/2016 2 QID MEDICATION RECONCILIATION E ACH 06/29/2016 06/29/2016 1 ONE Insulin Glargine 100 Units/Ml UNITS 06/29/2016 06/29/2016 70 BEDTIME Gabapentin MG 06/2906/29/2016 600 TID Diclofenac Sodium MG 06/29/2016 06/29/2016 75 BID Celecoxib* MG 06/2906/29/2016 200 DAILY Oral 09/04/2016 10/25/2016 Oral 270 Insulin Glargine,Hum.rec.anlog UNITS 09/11/2016 09/11/2016 70 DAILY Albuterol Sulfate PUFF 09/11/2016 09/11/2016 2 QID MEDICATION RECONCILIATION E ACH 09/11/2016 09/11/2016 1 ONE Hyoscyamine Sulfate TAB 09/11/2016 09/11/2017 1-2 Q4H PRN Insulin Glargine 100 Units/Ml UNITS 09/11/2016 09/11/2016 70 BEDTIME Gabapentin MG 09/1109/11/2016 600 TID Diclofenac Sodium MG 09/11/2016 09/11/2016 75 BID Celecoxib* MG 09/1109/11/2016 200 DAILY Insulin Glargine,Hum.rec.anlog UNITS 09/28/2016 09/28/2016 70 DAILY Albuterol Sulfate PUFF 09/28/2016 09/28/2016 2 QID Oxycodone CR* MG 09/28/2017 10 Q12H MEDICATION RECONCILIATION E ACH 09/28/2016 09/28/2016 1 ONE Hyoscyamine Sulfate TAB 09/28/2016 09/11/2017 1-2 Q4H PRN Insulin Glargine 100 Units/Ml UNITS 09/28/2016 09/28/2016 70 BEDTIME Gabapentin MG 09/2809/28/2016 600 TID Diclofenac Sodium MG 09/28/2016 09/28/2016 75 BID Celecoxib* MG 09/2809/28/2016 200 DAILY Insulin Glargine,Hum.rec.anlog UNITS 09/28/2016 09/28/2016 70 DAILY Albuterol Sulfate PUFF 09/28/2016 09/28/2016 2 QID Oxycodone 5 MG W/Actm 325 MG TAB 09/28/2016 09/28/2017 1 Q6H PRN Oxycodone CR* MG 09/28/2017 10 Q12H Hyoscyamine Sulfate TAB 09/28/2016 09/11/2017 1-2 Q4H PRN Insulin Glargine 100 Units/Ml UNITS 09/28/2016 09/28/2016 70 BEDTIME Gabapentin MG 09/2809/28/2016 800 TID Diclofenac Sodium MG 09/28/2016 09/28/2016 75 BID Celecoxib* MG 09/2809/28/2016 200 DAILY Oral 10/25/2016 Oral 270 Problems Date Dx Coded Attending Type Code Diagnosis Diagnosed By 06/23/2014 MOIRA OLIVEIRA 724.5 BACKACHE, UNSPECIFIED 06/23/2014 MOIRA OLIVEIRA E849.0 HOME ACCIDENTS 06/23/2014 MOIRA OLIVEIRA E880.9 ACCIDENTAL FALL ON OR FROM OTHER STAIRS OR STEPS 06/30/2014 OCTAVIA SPRINGER 723.1 CERVICALGIA 06/30/2014 OCTAVIA SPRINGER F 782.0 DISTURBANCE OF SKIN SENSATION 06/30/2014 OCTAVIA SPRINGER F 784.0 Headache, unspec. 06/30/2014 OCTAVIA SPRINGER F 787.02 NAUSEA ALONE 09/12/2014 MOIRA OLIVEIRA 789.04 ABDOMINAL PAIN, LEFT LOWER QUADRANT 11/30/2014 F 009.0 11/30/2014 F 787.02 11/30/2014 F 787.91 11/30/2014 F 789.09 12/24/2014 EDMUNDO MENDEZ 959 .7 LOWER LEG INJURY NOS 12/24/2014 EDMUNDO MENDEZ E00 0.9 UNSPECIFIED EXTERNAL CAUSE STATUS 12/24/2014 EDMUNDO MENDEZ E00 1.0 WALKING, MARCHING, HIKIN 12/24/2014 EDMUNDO MENDEZ E84 9.9 [address] IN UNSPECIFIED PLACE 12/24/2014 EDMUNDO MENDEZ E88 0.1 FALL ON OR FROM SIDEWALK CURB 12/24/2014 EDMUNDO MENDEZ 250 .00 Diabetes II, uncomplicated 12/24/2014 EDMUNDO MENDEZ 305 .1 Tobacco abuse 12/24/2014 EDMUNDO MENDEZ 845 .11 TARSOMETATARSAL (JOINT) (LIGAMENT) SPRAIN 12/24/2014 EDMUNDO MENDEZ 959 .7 LOWER LEG INJURY NOS 12/24/2014 EDMUNDO MENDEZ E84 9.0 HOME ACCIDENTS 12/24/2014 EDMUNDO MENDEZ E92 7.0 OVERXRT-SUDN STREN MVMT 12/24/2014 EDMUNDO MENDEZ V58 .67 LONG-TERM (CURRENT) USE OF INSULIN 02/10/2015 FLORIDALMA ASHLEY F R10.9 Unspecified abdominal pain 02/10/2015 FLORIDALMA ASHLEY F R19.00 Intra-abdominal and pelvic swelling, mass and lump, un specified site 02/10/2015 FLORIDALMA ASHLEY F E11.9 Type 2 diabetes mellitus without complications 02/10/2015 FLORIDALMA ASHLEY F F17.210 Nicotine dependence, cigarettes, uncomplicated 02/10/2015 FLORIDALMA ASHLEY F R10.13 Epigastric pain 02/10/2015 FLORIDALMA ASHLEY A R10.33 Periumbilical pain 05/10/2015 PAULA GRANGER E10.40 Type 1 diabetes mellitus with diabetic neuropathy, unspecified 05/10/2015 PAULA GRANGER E10.65 Type 1 diabetes mellitus with hyperglycemia 05/10/2015 PAULA GRANGER M54.5 Low back pain 05/10/2015 PAULA GRANGER S33.5XXA Sprain of ligaments of lumbar spine, initial encounter 05/10/2015 PAULA GRANGER Z87.442 Personal history of urinary calculi 05/27/2015 AMBER DORANTES R06.02 Shortness of breath 05/27/2015 AMBER DORANTES R07.89 Other chest pain 06/03/2015 SUSAN GARVIN I26.99 Other pulmonary embolism without acute cor pulmonale 06/03/2015 SUSAN GARVIN R06.00 Dyspnea, unspecified 06/03/2015 SUSAN GARVIN R07.89 Other chest pain 06/13/2015 SIDES, TERI F R06.02 Shortness of breath 06/13/2015 SIDES, TERI F R07.89 Other chest pain 06/13/2015 SIDES, TERI F R11.0 Nausea 06/13/2015 SIDES, TERI F Z87.01 Personal history of pneumonia (recurrent) 08/13/2015 KASIA PETERS P A R10.84 Generalized abdominal pain 08/13/2015 KASIA PETERS P A R11.2 Nausea with vomiting, unspecified 10/11/2015 RUPINDER MAGANA I26.99 Other pulmonary embolism without acute cor pulmonale 10/11/2015 RUPINDER MAGANA R07.9 Chest pain, unspecified 10/11/2015 RUPINDER MAGANA R 51 Headache 10/12/2015 RUPINDER MAGANA E10.65 Type 1 diabetes mellitus with hyperglycemia 10/12/2015 RUPINDER MAGANA J44.9 Chronic obstructive pulmonary disease, unspecified 10/12/2015 RUPINDER MAGANA M94.0 Chondrocostal junction syndrome [Tietze] 10/12/2015 RUPINDER MAGANA R07.89 Other chest pain 10/12/2015 RUPINDER MAGANA Z86.711 Personal history of pulmonary embolism 10/26/2015 SUSAN GARVIN R10.9 Unspecified abdominal pain 10/30/2015 WOODROW BAILEY R10.9 Unspecified abdominal pain 10/30/2015 WOODROW BAILEY R11.2 Nausea with vomiting, unspecified 10/30/2015 WOODROW BAILEY R19.7 Diarrhea, unspecified 12/08/2015 NILA RODRIGUEZ M54.9 Dorsalgia, unspecified 12/08/2015 NILA RODRIGUEZ N23 Unspecified renal colic 12/19/2015 Alejandra Metcalf K08.8 Other specified disorders of teeth and supporting structures 12/19/2015 Alejandra Metcalf Z98.89 Other specified postprocedural states 12/29/2015 WOODROW BAILEY K62.5 Hemorrhage of anus and rectum 12/29/2015 WOODROW BAILEY R11.2 Nausea with vomiting, unspecified 12/29/2015 WOODROW BAILEY E11.65 Type 2 diabetes mellitus with hyperglycemia 12/29/2015 WOODROW BAILEY F17.210 Nicotine dependence, cigarettes, uncomplicated 12/29/2015 WOODROW BAILEY K59.00 Constipation, unspecified 12/29/2015 WOODROW BAILEY R10.84 Generalized abdominal pain 12/29/2015 WOODROW BAILEY R11.2 Nausea with vomiting, unspecified 02/25/2016 ELÍAS HERMOSILLO K62.5 Hemorrhage of anus and rectum 04/08/2016 CATRACHITA ANDERSON K62.5 Hemorrhage of anus and rectum 04/08/2016 CATRACHITA ANDERSON K62.9 Disease of anus and rectum, unspecified 04/08/2016 CATRACHITA ANDERSON R10.9 Unspecified abdominal pain 04/08/2016 CATRACHITA ANDERSON R11.2 Nausea with vomiting, unspecified 04/11/2016 Roxanne PIERCE, P Sukumar F E11.43 Type 2 diabetes mellitus with diabetic autonomic (poly )neuropathy Roxanne PIERCE, P Sukumar 04/11/2016 Roxanne PIERCE, P Sukumar F F17.200 Nicotine dependence, unspecified, uncomplicated Roxanne PIERCE, P Sukumar 04/11/2016 Roxanne PIERCE, P Sukumar F K31.84 Gastroparesis Roxanne PIERCE, P Sukumar 04/11/2016 Roxanne PIERCE, P Sukumar F 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 Roxanne PIERCE, P Sukumar 04/11/2016 Roxanne PIERCE, P Sukumra F Z79.899 Other nursing home (current) drug therapy Pretty greenberg MD, P Sukumar 04/11/2016 RHODA NIETO E11.65 Type 2 diabetes mellitus with hyperglycemia 04/11/2016 RHODA NIETO F17.210 Nicotine dependence, cigarettes, uncomplicated 04/11/2016 RHODA NIETO K61.1 Rectal abscess 04/11/2016 RHODA NIETO K62.5 Hemorrhage of anus and rectum 04/11/2016 RHODA NIETO K64.8 Other hemorrhoids 04/13/2016 Catrachita Anderson MD F E11 .9 Type 2 diabetes mellitus without complications Catrachita Anderson MD 04/13/2016 Catrachita Anderson MD K64 .9 Unspecified hemorrhoids Catrachita Anderson MD 04/13/2016 Catrachita Anderson MD R11 .2 Nausea with vomiting, unspecified Catrachita Anderson MD 04/13/2016 Catrachita Anderson MD 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 Catrachita Anderson MD 04/13/2016 Catrachita Anderson MD Z79.899 Other nursing home (current) drug therapy Catrachita Bartholomew MD 04/13/2016 RHODA NIETO B95.8 Unspecified staphylococcus as the cause of diseases classified elsewhere 04/13/2016 RHODA NIETO K61.1 Rectal abscess 04/13/2016 RHODA NIETO R42 Dizziness and giddiness 04/13/2016 RHODA NIETO E11.9 Type 2 diabetes mellitus without complications 04/13/2016 RHODA NIETO K61.1 Rectal abscess 04/13/2016 RHODA NIETO L03.317 Cellulitis of buttock 04/13/2016 RHODA NIETO L98.9 Disorder of the skin and subcutaneous tissue, unspecified 04/30/2016 GABRIELLE REBOLLEDO M25.552 Pain in left hip 04/30/2016 GABRIELLE REBOLLEDO M53.3 Sacrococcygeal disorders, not elsewhere classified 05/18/2016 Gabrielle Rebolledo F17.200 Nicotine dependence, unspecified, uncomplicated Amaury, Gabrielle 05/18/2016 Gabrielle Rebolledo G89.29 Other chronic pain Amaury, Gabrielle 05/18/2016 Gabrielle Rebolledo M54.2 Cervicalgia Amaury, Gabrielle 05/18/2016 Gabrielle Rebolledo R51 Headache Amaury, Gabrielle 05/18/2016 Gabrielle Rebolledo S30.0XXA Contusion of lower back and pelvis, initial encounter Amaury, Gabrielle 05/18/2016 Gabrielle Rebolledo F S39.012A Strain of muscle, fascia and tendon of lower back, initial encounter Amaury, Gabrielle 05/18/2016 Gabrielle Rebolledo F S39.82XA Other specified injuries of lower back, initial encounter Amaury, Gabrielle 05/18/2016 Gabrielle Rebolledo F S70.02XA Contusion of left hip, initial encounter Amaury, Gabrielle 05/18/2016 Gabrielle Rebolledo W18.30XA Fall on same level, unspecified, initial encounter Amaury, Gabrielle 05/18/2016 Gabrielle Rebolledo Y92.[address] in unspecified non-institutional (private) residence as the place of occurrence of the external cause Amaury, Gabrielle 05/23/2016 RHODA NIETO R10.31 Right lower quadrant pain 05/23/2016 DEREK NIETONDA F R10.31 Right lower quadrant pain 05/23/2016 RHODA NIETO A R10.9 Unspecified abdominal pain 05/23/2016 RHODA NIETO F R73.9 Hyperglycemia, unspecified 07/03/2016 Hiram PIERCE, Cy K F E11.4 0 Type 2 diabetes mellitus with diabetic neuropathy, unspecified Hiram PIERCE, Cy K 07/03/2016 Hiram PIERCE, Cy K F E11.6 5 Type 2 diabetes mellitus with hyperglycemia Hiram PIERCE, Cy K 07/03/2016 Hiram PIERCE, Cy K F F17.2 10 Nicotine dependence, cigarettes, uncomplicated Hiram PIERCE, Cy K 07/03/2016 Hiram PIERCE, Cy K F F41.9 Anxiety disorder, unspecified Hiram PIERCE, Cy K 07/03/2016 Hiram PIERCE, Cy K F J18.9 Pneumonia, unspecified organism Hiram PIERCE, Cy K 07/03/2016 Hiram PIERCE, Cy K F R07.8 1 Pleurodynia Hiram PIERCE, Cy K 07/03/2016 Hiram PIERCE, Cy K F R09.0 2 Hypoxemia Hiram PIERCE, Cy K 07/03/2016 Hiram PIERCE, Cy K F 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 Hiram PIERCE, Cy K 07/03/2016 Hiram PIERCE, Cy K F Z86.7 11 Personal history of pulmonary embolism Hiram PIERCE, Cy K 08/30/2016 PAULA GRANGER B86 Scabies 08/30/2016 PAULA GRANGER L03.317 Cellulitis of buttock 08/30/2016 PAULA GRANGER R21 Rash and other nonspecific skin eruption 09/15/2016 Catrachita Anderson MD F E11 .9 Type 2 diabetes mellitus without complications Catrachita Anderson MD 09/15/2016 Catrachita Anderson MD F F17.200 Nicotine dependence, unspecified, uncomplicated Catrachita Anderson MD 09/15/2016 Catrachita Anderson MD F G89 .29 Other chronic pain Catrachita Anderson MD 09/15/2016 Catrachita Anderson MD F R10 .84 Generalized abdominal pain Catrachita Anderson MD 09/15/2016 Catrachita Anderson MD F 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 Catrachita Bartholomew MD 09/29/2016 Octavia Springer MD J F E11.9 Type 2 diabetes mellitus without complications Gian PIERCE, Octavia Whitaker 09/29/2016 Gian PIERCE Octavia J F F17.200 Nicotine dependence, unspecified, uncomplicated Gian PIERCE, Octavia J 09/29/2016 Gian PIERCE Octavia J F S22.32X A Fracture of one rib, left side, initial encounter for closed fracture Gian PIERCE, Octavia Whitaker 09/29/2016 Gian PIERCE Octavia J F S39.012 A Strain of muscle, fascia and tendon of lower back, initial encounter Gian PIERCE, Octavia J 09/29/2016 Gian PIERCE Octavia J F S93.602 A Unspecified sprain of left foot, initial encounter Gian PIERCE, Octavia Whitaker 09/29/2016 Gian PIERCE Octavia J F W19.XXX A Unspecified fall, initial encounter Gian PIERCE, Octavia Whitaker 09/29/2016 Gian PIERCE Octavia J F 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 Gian PIERCE, Octavia Whitaker 09/29/2016 Gian PIERCE Octavia J F 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 Gian PIERCE, Octavia Whitaker 10/01/2016 Gabrielle Rebolledo E11.9 Type 2 diabetes mellitus without complications Gabrielle Rebolledo 10/01/2016 Gabrielle Rebolledo F17.200 Nicotine dependence, unspecified, uncomplicated Gabrielle Rebolledo 10/01/2016 Gabrielle Rebolledo S22.32XD Fracture of one rib, left side, subsequent encounter for fracture with routine healing Gabrielle Rebolledo 10/01/2016 Gabrielle Rebolledo W19.XXXD Unspecified fall, subsequent encounter Gabrielle Rebolledo 10/01/2016 Gabrielle Rebolledo Z79.4 [facility] (current) use of insulin Gabrielle Rebolledo 10/01/2016 Gabrielle Rebolledo 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 Gabrielle Rebolledo 10/02/2016 WORKING R07.81 Pleurodynia 03/28/2017 RHODA NIETO E10.9 Type 1 diabetes mellitus without complications 03/28/2017 RHODA NIETO F17.200 Nicotine dependence, unspecified, uncomplicated 03/28/2017 RHODA NIETO J44.0 Chronic obstructive pulmonary disease with acute lower respiratory infection 03/28/2017 RHODA NIETO R50.9 Fever, unspecified 01/21/2019 RHODA NIETO S60.222 A Contusion of left hand, initial encounter 01/21/2019 RHODA NIETO S60.415 A Abrasion of left ring finger, initial encounter 01/21/2019 RHODA NIETO S60.417 A Abrasion of left little finger, initial encounter 01/21/2019 RHODA NIETO W31.89X A Contact with other specified machinery, initial encounter 01/21/2019 RHODA NIETO Y92.[address] in unspecified non-institutional (private) residence as the place of occurrence of the external cause 07/29/2019 RHODA NIETO M54.5 Low back pain 07/29/2019 RHODA NIETO S39.012 A Strain of muscle, fascia and tendon of lower back, initial encounter 07/29/2019 RHODA NITEO X50.9XX A Other and unspecified overexertion or strenuous movements or postures, initial encounter Procedures Code Description Performed By Per formed On ABC CBC WO DIFF 08/13/2015 CMETPP COM PREHENSIVE METABOLIC PANEL 08/13/2015 CTABDPEL C T ABDOMEN AND PELVIS WO CONTRAST 08/13/2015 Results Test Result Range CBC WO DIFF - 08/12/15 23:43 WBC 10.4 10*3/uL 4.0-10.8 RBC 5.34 10*6/uL 4.20-5.40 HGB 16.2 g/dL 12.0-16.0 HCT 47.6 % 37-47 MCV 89 fL 81-99 MCH 30 pg 26-34 MCHC 34 g/dL 31-37 PLATELET COUNT 208 10*3/uL 150-400 RDWCV 13.3 % 11.5-14.5 COMPREHENSIVE METABOLIC PANEL - 08/12/15 23:43 POTASSIUM 3.8 mmol/L 3.5-5.1 CALCIUM 9.3 mg/dL 8.6-10.6 GLUCOSE 209 mg/dL 70-115 BUN 10 mg/dL 8-22 CREATININE 0.7 mg/dL 0.6-1.1 SODIUM 138 mmol/L 136-145 CHLORIDE 104 mmol/L 98-110 CO2 24 mmol/L 22-29 GFR ESTIMATED NOT AFR/AM >60 GFR ESTIMATED IF AFR/AM >60 ALT-SGPT 36 U/L 0-55 AST-SGOT 32 U/L 5-34 TOTAL PROTEIN,SERUM 7.7 g/dL 6-8.3 ALBUMIN 4.4 g/dL 3.6-5.3 ALKALINE PHOSPHATASE 111 U/L 40-150 TOTAL BILIRUBIN 0.4 mg/dL 0.2-1.2 ANION GAP 10 5-15 GLOBULIN, CALCULATED 3.3 g/dL A/G RATIO 1.3 ratio 1-1.8 Microalb/Creat Ratio, [facility] - 6 14:30 Creatinine, Urine 45.9 mg/dL Not Estab. Microalbumin, Urine <9.5 ug/mL Not Estab . Microalb/Creat Ratio <20.7 mg/g creat 0. 0-30.0 URINE WITH MICRO-CULT IND. - 04/06/16 15 :11 APPEARANCE Clear Clear GLUCOSE 3+ Negative BILIRUBIN Negative Negative KETONE Negative Negative SPECIFIC GRAVIT 1.020 1.010-.025 PH 6.0 4.5 - 7.5 PROTEIN Negative Negative UROBILINOGEN 0.2 <=1.0 NITRITE Negative Negative BLOOD 2+ Negative LEUKOCYTES Negative Negative URINE CULTURE R Not Set URINE MICROSCOP Microscopic Results RBC O - 2 0 - 5 EPITHELIAL CELL O - 2 5 - 10 COLOR Yellow Yellow BACTERIA Trace Trace COMPLETE BLOOD COUNT W/DIFF - 04/06/16 1 5:19 HEMOGLOBIN 15.1 g/dl 12.0-16.0 PLATELET COUNT 154 10 3/uL 130-400 WHITE BLOOD CELL COUNT 7.3 10 3/uL 4.5-1 1.0 NEUTROPHIL% 59.5 % 43.0-72.0 LYMPHOCYTE% 32.4 % 15.0-45.0 MONOCYT% 4.0 % 1.0-12.0 EOSINOPHIL% 2.4 % 0.0-6.0 BASOPHIL% 1.7 % 0.0-2.0 NEUTROPHIL# 4.3 10 3/uL 1.0-8.0 LYMPHOCYTE# 2.4 10 3/uL 1.0-3.0 MONOCYTE# 0.3 10 3/uL 0.0-1.0 EOSINOPHIL# 0.2 10 3/uL 0.0-0.4 BASOPHIL# 0.1 10 3/uL 0.0-0.2 RED BLOOD CELL 4.87 10 6/uL 3.50-5.40 HEMATOCRIT 44.0 % 36-48 MEAN CORPUSCULAR VOLUME 90.3 fL 79-99 MEAN CORPUSCULAR HEMOGLOBIN 30.9 pg 25 .0-34.0 MEAN CELL HEMOGLOBIN CONC. 34.2 g/dL 31. 0-36.0 RED CELL DISTRIBUTION WIDTH 13.1 % 11 .0-15.0 MEAN PLATELET VOLUME 8.8 fL 7.0-11.0 COMP METABOLIC PROFILE - 04/06/16 15:19 ALBUMIN 3.5 g/dl 3.3-4.5 ALKALINE PHOSPHATASE 107 U/L 46-116 ANION GAP 9 mmol/L 8-16 BILIRUBIN TOTAL 0.3 mg/dl 0.0-1.2 GLUCOSE 256 mg/dl 70-99 BUN 8 mg/dl 5-21 CALCIUM 8.7 mg/dl 8.6-10.5 CHLORIDE 102 mmol/L 100-112 CARBON DIOXIDE 26 meq/L 21-33 AST/GOT 19 U/L 6-37 ALT/GPT 26 U/L 12-78 POTASSIUM 3.6 mmol/L 3.4-5.2 SODIUM 137 mmol/L 135-150 TOTAL PROTEIN 7.3 g/dl 6.4-8.2 CREATININE 0.60 mg/dl 0.60-1.30 GFR ESTIMATE > 60 mL/Min > 60 AG RATIO 0.9 0.7-2.0 LIPASE - 04/06/16 15:19 LIPASE 218 U/L 65-230 COMPLETE BLOOD COUNT W/DIFF - 04/30/16 1 8:11 HEMOGLOBIN 14.6 g/dl 12.0-16.0 PLATELET COUNT 159 10 3/uL 130-400 WHITE BLOOD CELL COUNT 7.2 10 3/uL 4.5-1 1.0 NEUTROPHIL% 48.1 % 43.0-72.0 LYMPHOCYTE% 42.0 % 15.0-45.0 MONOCYT% 5.2 % 1.0-12.0 EOSINOPHIL% 3.2 % 0.0-6.0 BASOPHIL% 1.5 % 0.0-2.0 NEUTROPHIL# 3.5 10 3/uL 1.0-8.0 LYMPHOCYTE# 3.0 10 3/uL 1.0-3.0 MONOCYTE# 0.4 10 3/uL 0.0-1.0 EOSINOPHIL# 0.2 10 3/uL 0.0-0.4 BASOPHIL# 0.1 10 3/uL 0.0-0.2 RED BLOOD CELL 4.81 10 6/uL 3.50-5.40 HEMATOCRIT 42.9 % 36-48 MEAN CORPUSCULAR VOLUME 89.2 fL 79-99 MEAN CORPUSCULAR HEMOGLOBIN 30.3 pg 25 .0-34.0 MEAN CELL HEMOGLOBIN CONC. 34.0 g/dL 31. 0-36.0 RED CELL DISTRIBUTION WIDTH 12.9 % 11 .0-15.0 MEAN PLATELET VOLUME 8.3 fL 7.0-11.0 COMP METABOLIC PROFILE - 04/30/16 18:11 ALBUMIN 3.3 g/dl 3.3-4.5 ALKALINE PHOSPHATASE 93 U/L 46-116 ANION GAP 9 mmol/L 8-16 BILIRUBIN TOTAL 0.3 mg/dl 0.0-1.2 GLUCOSE 178 mg/dl 70-99 BUN 8 mg/dl 5-21 CALCIUM 8.4 mg/dl 8.6-10.5 CHLORIDE 105 mmol/L 100-112 CARBON DIOXIDE 27 meq/L 21-33 AST/GOT 24 U/L 6-37 ALT/GPT 27 U/L 12-78 POTASSIUM 3.4 mmol/L 3.4-5.2 SODIUM 141 mmol/L 135-150 TOTAL PROTEIN 6.8 g/dl 6.4-8.2 CREATININE 0.55 mg/dl 0.60-1.30 GFR ESTIMATE > 60 mL/Min > 60 AG RATIO 0.9 0.7-2.0 URINALYSIS CULT IF INDICATED - 04/30/16 19:08 APPEARANCE Clear Clear GLUCOSE 1+ Negative BILIRUBIN Negative Negative KETONE Negative Negative SPECIFIC GRAVIT >=1.030 1.010-.025 PH 6.0 4.5 - 7.5 PROTEIN Negative Negative UROBILINOGEN 0.2 <=1.0 NITRITE Negative Negative BLOOD Negative Negative LEUKOCYTES Negative Negative URINE CULTURE R Not Set COLOR Yellow Yellow CBC WITH MANUAL DIFFERENTIAL - 06/27/16 12:20 HEMOGLOBIN 14.1 g/dl 12.0-16.0 PLATELET COUNT 235 10 3/uL 130-400 WHITE BLOOD CELL COUNT 6.8 10 3/uL 4.5-1 1.0 RED BLOOD CELL 4.72 10 6/uL 3.50-5.40 HEMATOCRIT 42.0 % 36-48 MEAN CORPUSCULAR VOLUME 88.9 fL 79-99 MEAN CORPUSCULAR HEMOGLOBIN 29.9 pg 25 .0-34.0 MEAN CELL HEMOGLOBIN CONC. 33.6 g/dL 31. 0-36.0 RED CELL DISTRIBUTION WIDTH 13.0 % 11 .0-15.0 MEAN PLATELET VOLUME 8.0 fL 7.0-11.0 COMP METABOLIC PROFILE - 06/27/16 12:20 ALBUMIN 3.1 g/dl 3.3-4.5 ALKALINE PHOSPHATASE 129 U/L 46-116 ANION GAP 12 mmol/L 8-16 BILIRUBIN TOTAL 0.4 mg/dl 0.0-1.2 GLUCOSE 235 mg/dl 70-99 BUN 7 mg/dl 5-21 CALCIUM 8.4 mg/dl 8.6-10.5 CHLORIDE 103 mmol/L 100-112 CARBON DIOXIDE 24 meq/L 21-33 AST/GOT 48 U/L 6-37 ALT/GPT 46 U/L 12-78 POTASSIUM 3.3 mmol/L 3.4-5.2 SODIUM 139 mmol/L 135-150 TOTAL PROTEIN 7.3 g/dl 6.4-8.2 CREATININE 0.55 mg/dl 0.60-1.30 GFR ESTIMATE > 60 mL/Min > 60 AG RATIO 0.7 0.7-2.0 CARDIAC PROFILE (X3) - 06/27/16 12:20 TROPONIN-I < 0.02 ng/ml 0.00-0.05 Procalcitonin - 06/27/16 12:20 Procalcitonin 0.05 ng/ml 0.0-0.10 CBC WITH MANUAL DIFFERENTIAL - 06/27/16 12:20 ABSOLUTE NEUTROPHIL COUNT 3.9 # 1.0- 8.0 HEMOGLOBIN 14.1 g/dl 12.0-16.0 PLATELET COUNT 235 10 3/uL 130-400 WHITE BLOOD CELL COUNT 6.8 10 3/uL 4.5-1 1.0 LYMPHOCYTE# 2.4 # 1.0-3.0 MONOCYTE# 0.1 # 0.0-1.0 EOSINOPHIL# 0.3 # 0.0-0.4 BASOPHIL# 0.0 # 0.0-0.2 SEGS 57 % 50-65 LYMPHS 36 % 15-45 MONOS 1 % 0-10 EOS 5 % 0-5 ATYP LYMPHS 1 % 0-5 RED BLOOD CELL 4.72 10 6/uL 3.50-5.40 HEMATOCRIT 42.0 % 36-48 MEAN CORPUSCULAR VOLUME 88.9 fL 79-99 MEAN CORPUSCULAR HEMOGLOBIN 29.9 pg 25 .0-34.0 MEAN CELL HEMOGLOBIN CONC. 33.6 g/dL 31. 0-36.0 RED CELL DISTRIBUTION WIDTH 13.0 % 11 .0-15.0 MEAN PLATELET VOLUME 8.0 fL 7.0-11.0 HEMOGLOBIN A1C - 06/27/16 12:20 HEMOGLOBIN A1C 10.2 % 4.5-6.2 ARTERIAL BLOOD GAS PANEL - 06/27/16 12:4 5 pH 7.440 7.350-7.450 PCO2 36.0 mmHg 35.0-45.0 PO2 55.0 mmHg 80-100 BE +/- 0.7 mEq/L -2.0-2.0 BGTCO2 25.6 mEq/L 21-33 THB 14.6 gm/dL 12.0-16.0 %02HB 88 % 88-100 %COHB 4.100 % 0.0-1.5 %METHB 1.2 % 0.4-1.5 O2CT 18.0 Vol % 16.0-23.0 INSPIRED O2 21.0 % DRAW SITE R Brachial HCO3 24.5 mEq/L 22.0-26.0 D-DIMER - 06/27/16 12:45 D-DIMER 0.67 ug/ml < 0.50 LACTIC ACID - 06/27/16 12:48 LACTIC ACID 1.6 mmol/L 0.4-2.0 BLOOD CULTURE - 06/27/16 12:48 BLOOD CULTURE Collection time: [f mctm] C-REACTIVE PROTEIN - 06/27/16 13:13 C-REACTIVE PROTEIN 11.8 mg/L 0.0-9.0 RESP PATHOGEN PANEL-IN HOUSE - 06/27/16 14:15 RESP PATHOGEN PANEL-IN HOUSE URINALYSIS CULT IF INDICATED - 06/27/16 14:35 APPEARANCE Clear Clear GLUCOSE Trace Negative BILIRUBIN Negative Negative KETONE Negative Negative SPECIFIC GRAVIT 1.010 1.010-.025 PH 6.0 4.5 - 7.5 PROTEIN Negative Negative UROBILINOGEN 0.2 <=1.0 NITRITE Negative Negative BLOOD Negative Negative LEUKOCYTES Negative Negative URINE CULTURE R Not Set COLOR Yellow Yellow TROPONIN-I - 06/27/16 15:14 TROPONIN-I < 0.02 ng/ml 0.00-0.05 PROTIME INR - 06/27/16 17:16 PROTHROMBINE MARCELO 13.1 Seconds 11.9-14.4 PROTIME INR 1.00 0.87-1.13 APTT - 06/27/16 17:16 APTT 23.5 Seconds 23.9-34.0 TROPONIN-I - 06/27/16 18:15 TROPONIN-I < 0.02 ng/ml 0.00-0.05 FINGERSTICK BLOOD SUGAR POC - 06/27/16 2 1:27 FINGER STICK GL 257 mg/dl 70-99 HEPARIN ANTI-XA, IN HOUSE - 06/27/16 23: 45 HEPARIN ANTI-XA, IN HOUSE 0.10 IU/mL 0.3 -0.7 CBC WITH MANUAL DIFFERENTIAL - 06/28/16 04:35 ABSOLUTE NEUTROPHIL COUNT 2.4 # 1.0- 8.0 HEMOGLOBIN 12.7 g/dl 12.0-16.0 PLATELET COUNT 184 10 3/uL 130-400 WHITE BLOOD CELL COUNT 5.4 10 3/uL 4.5-1 1.0 LYMPHOCYTE# 2.5 # 1.0-3.0 MONOCYTE# 0.2 # 0.0-1.0 EOSINOPHIL# 0.1 # 0.0-0.4 BASOPHIL# 0.1 # 0.0-0.2 SEGS 45 % 50-65 LYMPHS 47 % 15-45 MONOS 4 % 0-10 EOS 2 % 0-5 BASOS 1 % 0-2 ATYP LYMPHS 1 % 0-5 RED BLOOD CELL 4.21 10 6/uL 3.50-5.40 HEMATOCRIT 37.3 % 36-48 MEAN CORPUSCULAR VOLUME 88.5 fL 79-99 MEAN CORPUSCULAR HEMOGLOBIN 30.3 pg 25 .0-34.0 MEAN CELL HEMOGLOBIN CONC. 34.2 g/dL 31. 0-36.0 RED CELL DISTRIBUTION WIDTH 13.3 % 11 .0-15.0 MEAN PLATELET VOLUME 9.1 fL 7.0-11.0 COMP METABOLIC PROFILE - 06/28/16 04:35 ALBUMIN 2.6 g/dl 3.3-4.5 ALKALINE PHOSPHATASE 108 U/L 46-116 ANION GAP 11 mmol/L 8-16 BILIRUBIN TOTAL 0.3 mg/dl 0.0-1.2 GLUCOSE 128 mg/dl 70-99 BUN 7 mg/dl 5-21 CALCIUM 8.2 mg/dl 8.6-10.5 CHLORIDE 109 mmol/L 100-112 CARBON DIOXIDE 26 meq/L 21-33 AST/GOT 36 U/L 6-37 ALT/GPT 40 U/L 12-78 POTASSIUM 3.0 mmol/L 3.4-5.2 SODIUM 146 mmol/L 135-150 TOTAL PROTEIN 6.5 g/dl 6.4-8.2 CREATININE 0.56 mg/dl 0.60-1.30 GFR ESTIMATE > 60 mL/Min > 60 AG RATIO 0.7 0.7-2.0 FINGERSTICK BLOOD SUGAR [facility] 06/28/16 0 6:11 FINGER STICK GL 137 mg/dl 70-99 HEPARIN ANTI-XA, IN [facility] 06/28/16 07: 10 HEPARIN ANTI-XA, IN HOUSE < 0.10 IU/mL 0 .3-0.7 FINGERSTICK BLOOD SUGAR [facility] 06/28/16 1 1:26 FINGER STICK GL 264 mg/dl 70-99 FINGERSTICK BLOOD SUGAR [facility] 06/28/16 1 5:53 FINGER STICK GL 163 mg/dl 70-99 HEPARIN ANTI-XA, IN [facility] 06/28/16 17: 53 HEPARIN ANTI-XA, IN HOUSE 0.10 IU/mL 0.3 -0.7 FINGERSTICK BLOOD SUGAR [facility] 06/28/16 2 1:08 FINGER STICK GL 176 mg/dl 70-99 COMPLETE BLOOD COUNT - 06/29/16 03:50 HEMOGLOBIN 12.5 g/dl 12.0-16.0 PLATELET COUNT 171 10 3/uL 130-400 WHITE BLOOD CELL COUNT 4.7 10 3/uL 4.5-1 1.0 RED BLOOD CELL 4.16 10 6/uL 3.50-5.40 HEMATOCRIT 37.2 % 36-48 MEAN CORPUSCULAR VOLUME 89.4 fL 79-99 MEAN CORPUSCULAR HEMOGLOBIN 30.1 pg 25 .0-34.0 MEAN CELL HEMOGLOBIN CONC. 33.6 g/dL 31. 0-36.0 RED CELL DISTRIBUTION WIDTH 13.4 % 11 .0-15.0 MEAN PLATELET VOLUME 8.5 fL 7.0-11.0 HEPARIN ANTI-XA, IN [place] - 06/29/16 03: 50 HEPARIN ANTI-XA, IN HOUSE 0.15 IU/mL 0.3 -0.7 COMP METABOLIC PROFILE - 06/29/16 03:50 ALBUMIN 2.7 g/dl 3.3-4.5 ALKALINE PHOSPHATASE 106 U/L 46-116 ANION GAP 9 mmol/L 8-16 BILIRUBIN TOTAL 0.2 mg/dl 0.0-1.2 GLUCOSE 211 mg/dl 70-99 BUN 11 mg/dl 5-21 CALCIUM 8.4 mg/dl 8.6-10.5 CHLORIDE 107 mmol/L 100-112 CARBON DIOXIDE 24 meq/L 21-33 AST/GOT 36 U/L 6-37 ALT/GPT 44 U/L 12-78 POTASSIUM 4.1 mmol/L 3.4-5.2 SODIUM 140 mmol/L 135-150 TOTAL PROTEIN 6.4 g/dl 6.4-8.2 CREATININE 0.69 mg/dl 0.60-1.30 GFR ESTIMATE > 60 mL/Min > 60 AG RATIO 0.7 0.7-2.0 FINGERSTICK BLOOD SUGAR POC - 06/29/16 0 6:34 FINGER STICK GL 191 mg/dl FINGERSTICK BLOOD SUGAR POC - 06/29/16 1 1:00 FINGER STICK GL 218 mg/dl FINGERSTICK BLOOD SUGAR POC - 06/29/16 1 6:24 FINGER STICK GL 203 mg/dl 70 Insulin - 09/04/16 13:50 Insulin 50.0 uIU/mL 2.6-24.9 COMPLETE BLOOD COUNT W/DIFF - 09/10/16 2 2:19 HEMOGLOBIN 15.0 g/dl 12.0-16.0 PLATELET COUNT 177 10 3/uL 130-400 WHITE BLOOD CELL COUNT 8.7 10 3/uL 4.5-1 1.0 NEUTROPHIL% 43.9 % 43.0-72.0 LYMPHOCYTE% 46.2 % 15.0-45.0 MONOCYT% 4.4 % 1.0-12.0 EOSINOPHIL% 4.3 % 0.0-6.0 BASOPHIL% 1.2 % 0.0-2.0 NEUTROPHIL# 3.8 10 3/uL 1.0-8.0 LYMPHOCYTE# 4.0 10 3/uL 1.0-3.0 MONOCYTE# 0.4 10 3/uL 0.0-1.0 EOSINOPHIL# 0.4 10 3/uL 0.0-0.4 BASOPHIL# 0.1 10 3/uL 0.0-0.2 RED BLOOD CELL 4.85 10 6/uL 3.50-5.40 HEMATOCRIT 43.7 % 36-48 MEAN CORPUSCULAR VOLUME 90.0 fL 79-99 MEAN CORPUSCULAR HEMOGLOBIN 30.9 pg 25 .0-34.0 MEAN CELL HEMOGLOBIN CONC. 34.3 g/dL 31. 0-36.0 RED CELL DISTRIBUTION WIDTH 13.2 % 11 .0-15.0 MEAN PLATELET VOLUME 8.8 fL 7.0-11.0 COMP METABOLIC PROFILE - 09/10/16 22:19 ALBUMIN 3.6 g/dL 3.3-4.5 ALKALINE PHOSPHATASE 77 U/L 50-136 ANION GAP 11 mmol/L 8-16 BILIRUBIN TOTAL 0.2 mg/dL 0.0-1.2 GLUCOSE 249 mg/dL 70-99 BUN 9 mg/dL 5-21 CALCIUM 9.0 mg/dL 8.6-10.5 CHLORIDE 107 mmol/L 100-112 CARBON DIOXIDE 22 mg/dL 18-30 AST/GOT 14 U/L 6-37 ALT/GPT 13 U/L 12-78 POTASSIUM 3.9 mmol/L 3.4-5.2 SODIUM 140 mmol/L 135-150 TOTAL PROTEIN 7.5 g/dL 6.4-8.2 CREATININE 0.74 mg/dL 0.60-1.30 GFR ESTIMATE > 60 mL/Min > 60 AG RATIO 0.9 0.7-2.0 URINE WITH MICRO-CULT IND. - 09/10/16 22 :20 APPEARANCE Sl Cloudy Clear GLUCOSE 3+ Negative BILIRUBIN Negative Negative KETONE Trace Negative SPECIFIC GRAVIT 1.015 1.010-.025 PH 6.0 4.5 - 7.5 PROTEIN Negative Negative UROBILINOGEN 0.2 <=1.0 NITRITE Negative Negative BLOOD 3+ Negative LEUKOCYTES Negative Negative URINE CULTURE R Not Set URINE MICROSCOP Microscopic Results RBC 50 - 100 0 - 5 EPITHELIAL CELL 10 - 25 5 - 10 COLOR Yellow Yellow WBC O - 2 0 - 5 BACTERIA Trace Trace TROPONIN I POCT - 10/02/16 18:12 POC COMMENT SEE NOTES CARDIAC TROPONIN I POCT <0.02 ng/mL <0.0 8 Encounters ACCT No. Visit Date/Time Discharge Status Pt. Type Provider Facility Loc./Unit Complaint [id number] 09/05/2016 07:35:00 Document Registration [id number] 07/29/2019 15:28:00 07/29/2019 15:5 8:00 DIS Emergency [facility] ED [id number] 01/21/2019 15:37:00 01/21/2019 16:3 2:00 DIS Emergency [facility] ED [id number] 03/28/2017 10:17:00 03/28/2017 23:5 9:59 CLS Emergency [facility] ED [id number] 08/30/2016 08:14:00 08/30/2016 09:0 5:00 DIS ED [facility] ED [id number] 05/23/2016 17:50:00 05/23/2016 19:0 6:00 DIS ED [facility] ED [id number] 04/30/2016 16:15:00 04/30/2016 17:0 0:00 DIS AM GABRIELLE REBOLLEDO [id number] 04/13/2016 13:57:00 04/13/2016 16:1 3:00 DIS ED [facility] ED [id number] 04/11/2016 10:44:00 04/11/2016 14:4 6:00 DIS ED [facility] ED [id number] 12/29/2015 08:22:00 12/29/2015 10:0 8:00 DIS ED WOODROW BAILEY [facility] ED [id number] 12/19/2015 16:06:00 12/19/2015 17:3 5:00 DIS ED [facility] ED [id number] 10/11/2015 23:42:00 10/12/2015 01:5 9:00 DIS ED RUPINDER MAGANA [facility] ED [id number] 05/10/2015 08:23:00 05/10/2015 12:1 5[id number] 02/10/2015 14:49:00 02/10/2015 16:3 0:00 DIS ED FLORIDALMA ASHLEY [facility] ED [id number] 12/24/2014 20:17:00 12/24/2014 21:5 0:00 DIS ED VANESSAKUNALEDMUNDOLORETO [facility] ED [id number] 05/23/2016 17:09:00 DIS AM RHODA NIETO [id number] 04/13/2016 13:20:00 DIS AM NIETO, RHODA [id number] 04/08/2016 09:29:00 DIS AM CATRACHITA ANDERSON [id number] 02/25/2016 09:09:00 DIS AM ELÍAS HERMOSILLO [id number] 12/29/2015 07:52:00 DIS AM WOODROW BAILEY [id number] 12/08/2015 10:42:00 DIS AM NILA RODRIGUEZ [id number] 10/30/2015 08:23:00 DIS AM WOODROW BAILEY [id number] 10/26/2015 10:48:00 DIS AM SUSAN GARVIN [id number] 10/12/2015 10:34:00 DIS OP RUPINDER MAGANA [facility] OT [id number] 10/11/2015 22:45:00 DIS AM RUPINDER MAGANA [id number] 06/13/2015 11:43:00 DIS AM TERI MAGUIRE [id number] 06/03/2015 20:38:00 DIS AM SUSAN GARVIN [id number] 05/27/2015 16:34:00 DIS AM AMBER DORANTES [id number] 02/10/2015 13:37:00 DIS AM DIONFLORIDALMA [id number] 12/24/2014 19:43:00 DIS AM EDMUNDO MENDEZ [id number] 09/12/2014 09:24:00 DIS AM MOIRA OLIVEIRA [id number] 06/30/2014 01:33:00 DIS AM OCTAVIA SPRINGER [id number] 06/23/2014 16:50:00 DIS AM MOIRA OLIVEIRA [id number] 10/02/2016 16:55:00 10/02/2016 19: 08:00 DIS Emergency [facility] [id number] 08/12/2015 22:01:00 08/13/2015 01: 10:00 DIS Emergency YABUT, KASIA P [facility] alex [place] [facility] [id number] 03/28/2016 04:05:00 Document Registration [id number] 10/26/2016 09:15:49 10/26/2016 09:15 :49 DIS Unknown [id number] 09/28/2016 13:12:00 017 13:42:00 DIS Emergency AmauryGabrielle [facility] ED [id number] 09/27/2016 22:02:00 017 00:42:00 DIS Emergency Gian PIERCE, Octavia Duran [facility] ED [id number] 09/10/2016 21:58:00 017 01:15:00 DIS Emergency Carrie PIERCE, Catrachita Woo [facility] ED [id number] 06/27/2016 15:25:00 017 19:25:00 DIS Inpatient Hiram PIERCE, Sam [address] [id number] 04/30/2016 17:02:00 017 19:22:00 DIS Emergency AmauryGabrielle [facility] ED [id number] 04/08/2016 10:20:00 016 12:00:00 DIS Emergency Carrie PIERCE, Catrachita Woo [facility] ED [id number] 04/06/2016 14:51:00 016 17:50:00 DIS Emergency Jackson Oliveira MD [facility] ED [id number] 11/25/2014 20:24:00 Document Registration
--- OUTSIDE RECORDS SUMMARY | 2019-09-19 18:08 | XMS REPORT | Continuity of Care Document ---
Author Author [facility] Address [address] [place] [address] Care Team Providers Care Copier And Printer Field Technician Name Role Phone DOCTOR, OUT OF TOWN Unavailable Unavailable Insurance Providers Payer Name Policy Number Subscriber Name Relationship [facility] [id number] KESHIA SANCHEZ PATIENT/SELF Advance Directives Directive Response Recorded Date/Time Advance Directive Information: AD BROCHURE GIVEN TO PT 06/27 4:30pm Chief Complaint and Reason for Visit Reason for Visit SOB Problems Active Medical Problems Problem Onset Date [...] 06/27/16 Active Elevated d-dimer Unknown 06/27/16 Active Medications Current Home Medications Medication Dose [...] DAILY LAST FILLED 03/23/16 (90 DAY SUPPLY) Insulin Glargine 100 Units/Ml (Lantus) 100 UNIT/1 [...] discharge instructions. Plan of Care Discharge Date 06/29/16 Disposition AGAINST MEDICAL ADVICE Prescriptions See Medications Section Functional Status Query Response Date Recorded Mobility: Stand by Assist June 29, 2016 8:14a m Toileting: Independent June 27, 2016 6:16p m Bath: Independent June 27, 2016 6:16p m Oral Care: Independent June 27, 2016 6:16p m Dressing: Independent June 27, 2016 6:16p m Eating: Independent June 27, 2016 6:16p m Food Preparation: Independent June 27, 2016 6:16p m Housekeeping: Independent June 27, 2016 6:16p m Transportation: Independent June 27, 2016 6:16p m Allergies, Adverse Reactions, Alerts Allergen Type Severity [...] Vital Reading Collection Date/Time Result Blood Pressure 06/29/16 7:12pm 145/69 Blood Pressure Source 06/29/16 7:12pm Brachial Patient Temperature 06/29/16 7:12pm 98.1 Temperature Source 06/29/16 7:12pm Temporal Respiratory Rate 06/29/16 7:12pm 20 Pulse Rate 06/29/16 7:12pm 77 Pulse Location 06/29/16 7:12pm Monitor Bedside Pulse Oximetry 06/29/16 7:12pm 95 Height 06/28/16 4:06pm 154.94 cm Height 06/28/16 4:06pm 5 ft 1 in Weight 06/29/16 4:32am 103.532 kg Weight 06/29/16 4:32am 228 lb 4 oz Body Mass Index 06/28/16 4:06pm 43.1 Results [place] [address] ED PHYSICIAN DOCUMENTATION Patient Name: KESHIA SANCHEZ : 69 Unit #: [id number] Patient's Service Date: 06/27/16 ED Physician: Gabrielle Rebolledo MD (ED) Primary Physician: OUT OF TOWN DOCTOR History of Present Illness General Chief Complaint Respiratory Distress Stated Complaint SOB Time Seen by Provider 1225 Source patient Exam Limitations no limitations History of Present Illness Initial Comments Pt has had a cough for the past few days. It has worsened acutely today. She fee ls short of breath. She has had chills at home. She denies chronic lung dz. She does have hx of a PE. No chest pain. No vomiting. No diarrhea. She does have rib pain after coughing. Location generalized, chest (left anterior) Context present at rest Quality sharp ((ribs)) Severity moderate Duration days (5) Timing one episode, worsening Modifying Factors nothing improves, nothing worsens Allergies Coded Allergies: BENZONATATE (From TESSALON PERLES) [...] Gabapentin (Neurontin) 600 MG BY MOUTH TID (Daron Mcallister (ED)) History of Present Illness Initial Comments The patient complains of shortness of breath for the past few days. (Gabrielle Rebolledo MD (ED)) Review of Systems Review of Systems Was ROS Completed? Yes Constitutional Reports chills Eyes Denies redness, Denies drainage ENT Reports nose congestion, Denies ear pain, Denies throat pain Respiratory Reports cough, Reports short of breath, Reports wheezing Cardiovascular Denies chest pain, Denies syncope Gastrointestinal Denies abdominal pain, Denies nausea, Denies vomiting Skin Denies rash Neurological Denies headache (Daron Mcallister (ED)) Past Medical History Past Medical History Medical History diabetes, bowel obstruction Surgical History cholecystectomy, hysterectomy, hernia repair, bowel resection Psychosocial History denies psych problems Social History Smoker Current every day smoker (Daron Mcallister (ED)) Physical Exam Physical Exam Exam Limitations no limitations Nursing Assessment Reviewed Yes Initial Vital Signs Vital Signs Result Date Time Pulse Ox 96 06/27 1249 B/P 150/88 06/27 1249 Temp 98.4 06/27 1249 Pulse 84 06/27 1249 Resp 28 06/27 1249 Constitutional well developed, well nourished, no apparent distress Eyes bilateral eyes PERRL, bilateral eyes EOMI Ear, Nose, Throat hearing grossly normal, normal TM (R), normal TM (L), nasal co ngestion Neck normal inspection, non-tender, supple, full range of motion Respiratory no respiratory distress, rhonchi, chest wall tenderness (left sided) Cardiovascular regular rate/rhythm Gastrointestinal soft, non tender, normal bowel sounds Musculoskeletal gait WNL, normal strength Skin normal color, warm/dry, good capillary refill, good skin turgor Neurological no motor deficit, no sensory deficit Psychiatric alert, oriented, normal mood/affect (Daron Mcallister (ED)) Physical Exam Nursing Assessment Reviewed Yes Constitutional well developed, well nourished, moderate distress Neck normal inspection, supple Respiratory decreased breath sounds, accessory muscle use, rhonchi Cardiovascular regular rate/rhythm Musculoskeletal normal strength Skin normal color, warm/dry (Gabrielle Rebolledo MD (ED)) Results Results Labs Laboratory Tests 06/27 06/27 06/27 06/27 06/27 1220 1220 1220 1245 1248 Blood Gas Puncture Site R Brachial pH (7.350 - 7.450) 7.440 pCO2 (35.0 - 45.0 mmHg) 36.0 pO2 (80 - 100 mmHg) 55.0 L HCO3 (22.0 - 26.0 mEq/L) 24.5 Total CO2 (21 - 33 mEq/L) 25.6 Base Excess (-2.0 - 2.0 mEq/L) 0.7 Hemoglobin (12.0 - 16.0 gm/dL) 14.6 Oxyhemoglobin % (88 - 100 %) 88 Carboxyhemoglobin (0.0 - 1.5 %) 4.100 H Methemoglobin (0.4 - 1.5 %) 1.2 Oxygen Content (16.0 - 23.0 Vol %) 18.0 Inspired O2 (%) 21.0 Chemistry Sodium (135 - 150 mmol/L) 139 Potassium (3.4 - 5.2 mmol/L) 3.3 L Chloride (100 - 112 mmol/L) 103 Carbon Dioxide (21 - 33 meq/L) 24 Anion Gap (8 - 16 mmol/L) 12 BUN (5 - 21 mg/dl) 7 Creatinine (0.60 - 1.30 mg/dl) 0.55 L GFR Calculation (> 60 mL/Min) > 60 Glucose (70 - 99 mg/dl) 235 H Lactic Acid (0.4 - 2.0 mmol/L) 1.6 Calcium (8.6 - 10.5 mg/dl) 8.4 L Total Bilirubin (0.0 - 1.2 mg/dl) 0.4 AST (6 - 37 U/L) 48 H ALT (12 - 78 U/L) 46 Alkaline Phosphatase (46 - 116 U/L) 129 H Troponin I (0.00 - 0.05 ng/ml) < 0.02 Total Protein (6.4 - 8.2 g/dl) 7.3 Albumin (3.3 - 4.5 g/dl) 3.1 L Albumin/Globulin Ratio (0.7 - 2.0) 0.7 Procalcitonin (0.0 - 0.10 ng/ml) 0.05 Coagulation D-Dimer (< 0.50 ug/ml) 0.67 H Hematology WBC (4.5 - 11.0 10^3/uL) 6.8 RBC (3.50 - 5.40 10^6/uL) 4.72 Hgb (12.0 - 16.0 g/dl) 14.1 Hct (36 - 48 %) 42.0 MCV (79 - 99 fL) 88.9 MCH (25.0 - 34.0 pg) 29.9 MCHC (31.0 - 36.0 g/dL) 33.6 RDW (11.0 - 15.0 %) 13.0 Plt Count (130 - 400 10^3/uL) 235 MPV (7.0 - 11.0 fL) 8.0 Neutrophils (Manual) (50 - 65 %) 57 Neutrophils # (1.0 - 8.0 #) 3.9 Lymphocytes (Manual) (15 - 45 %) 36 Lymphocytes # (1.0 - 3.0 #) 2.4 Monocytes (Manual) (0 - 10 %) 1 Monocytes # (0.0 - 1.0 #) 0.1 Eosinophils (Manual) (0 - 5 %) 5 Eosinophils # (0.0 - 0.4 #) 0.3 Basophils # (0.0 - 0.2 #) 0.0 Atypical Lymphocytes (0 - 5 %) 1 06/27 06/27 1313 1435 Chemistry C-Reactive Prot, Quant (0.0 - 9.0 mg/L) 11.8 H Urines Urine Color Pending Urine Appearance Pending Urine pH Pending Ur Specific [place] Pending Urine Protein Pending Urine Ketones Pending Urine Blood Pending Urine Nitrate Pending Urine Bilirubin Pending Urine Urobilinogen Pending Ur Leukocyte Esterase Pending Urine Glucose Pending Microbiology Microbiology Date/Time Procedure - Status Source Growth 06/27 1415 Respiratory Panel (PCR) - RECD Nasal/Phar 06/27 1248 Blood Culture - RECD Blood Progress Note Medications Medications Medications Given in the ED Sig/Chari Start time Last Medication Dose Route Stop Time Status Admin Albuterol/Ipratropium 3 ML ONE ONE 06/27 1229 DC 06/27 (DUONEB 2.5-0.5 MG/ IH 06/27 1230 1244 3ML NEB SOLN) Azithromycin 500 MG ONE ONE 06/27 1454 AC (AZITHROMYCIN 500 MG IV 06/27 1653 INJ) Sodium Chloride 250 ML (0.9% Sodium Chloride) Ceftriaxone Sodium 1,000 MG X1ED STA 06/27 1454 CKD (Rocephin) IV 06/27 1523 Sodium Chloride 50 ML Diltiazem HCl 10 MG ONE ONE 06/27 1512 DC (Diltiazem bolus IV 06/27 1513 vial) Enoxaparin Sodium 90 MG ONE ONE 06/27 1428 DC (lovENOX 100MG/1ML) SQ 06/27 1429 Fentanyl Citrate 25 MCG ONE ONE 06/27 1510 DC 06/27 (FENTANYL) IV 06/27 1511 1518 Fentanyl Citrate 25 MCG ONE ONE 06/27 1310 DC 06/27 (FENTANYL) IV 06/27 1311 1324 Sodium Chloride 2,700 ML ONE ONE 06/27 1226 DC 06/27 (0.9% Sodium IV 06/27 1227 1320 Chloride) Progress Note Progress Note Time 1325 Progress Note Pt states that DuoNeb improved his s/sx (Daron Mcallister (ED)) Progress Note Progress Note 2 Time 1518 Progress Note Discussed with Dr. Gandhi who agreed to admit (Gabrielle Rebolledo MD (ED)) Departure Departure Referrals OUT OF TOWN DOCTOR (PCP) (Daron Mcallister (ED)) Departure Clinical Impression Primary Impression: Left lower lobe pneumonia Qualifiers: Pneumonia type: due to unspecified organism Qualified Code: J18.1 - Lobar pneumonia, unspecified organism Secondary Impressions: Elevated d-dimer, Hypoxia Time of Disposition 1519 Disposition [facility] Condition Fair Tobacco Education Edu Omitted Other Reason (admitted) (Gabrielle Rebolledo MD (ED)) Gabrielle Rebolledo MD Electronically Signed 06/27/16 1520 Procedures No Known History of Procedures. Encounters Encounter Location Arrival/Admit Date Discharge/Depart Date Attending Provider Discharged Inpatient [facility] 06/27/16 12:06pm 7:25pm Yeyo Gandhi MD Departed Emergency [facility] 04/30/16 5:02pm 04/30/16 7:22pm Amaury (ED) Gabrielle Saldivar MD Departed Emergency [facility] 04/08/16 10:19am 04/08/16 12:00pm Jasbir Butler MD Departed Emergency [facility] 04/06/16 2:50pm 04/06/16 5:50pm Jackson Oliveira MD Encounter Diagnosis Onset Date Back contusion Renal colic on left side Chronic pain disorder Syncope Diabetes type 2, uncontrolled Abdominal pain Multiple contusions Allergic reaction caused by a drug Infectious gastroenteritis Gastroparesis Acute hemorrhoid Fall Left lower lobe pneumonia Hypoxia Elevated d-dimer
== END 2019-09-19 17:04 | disposition home or self-care (01) ==
LOC: EDUNIT# 16:25 → ER FS 16:28
DX: R31.9 Hematuria, unspecified (principal); R10.31 Right lower quadrant pain; E11.40 Type 2 diabetes mellitus with diabetic neuropathy, unspecified; F17.210 Nicotine dependence, cigarettes, uncomplicated; Z87.442 Personal history of urinary calculi; Z88.8 Allergy status to other drugs, medicaments and biological substances; Z88.5 Allergy status to narcotic agent
CPT/HCPCS: 81000; 99284